=== PATIENT | male | born 1950 | race Caucasian/White ===

== ENCOUNTER 2020-11-17 12:29 | Outpatient (RCR) | payer MEDICARE, SELFPAY ==
[2017-02-09 14:20] VITALS: BMI 24.7
== END 2020-11-17 23:59 ==
LOC: IMMUN 12:29
PROVIDERS: PCP Nurse Practitioner Family; Visit Provider Family Medicine
DX: Z23 Encounter for immunization (principal)
CPT/HCPCS: 0011A; 0012A

== ENCOUNTER → 2020-11-26 14:12 | Outpatient (CLI) | payer MEDICARE, SELFPAY ==
[2017-02-09 14:20] VITALS: BMI 24.7
--- NOTE | 2020-11-26 14:15 | RAD_ITS ---
STUDY: X-RAY - CERVICAL SPINE REASON FOR EXAM: Male, 70 years old. NECK PAIN TECHNIQUE: 4 view(s) of the cervical spine were obtained. COMPARISON: None FINDINGS: Normal anterior atlantoaxial articulation. Normal odontoid process. Normal cervical lordosis. Mild disc space narrowing throughout the cervical spine. Normal disc space heights. Normal visualized intervertebral neuroforamina. The soft tissue structures are unremarkable. RAD/Cerv Spine 2 or 3 Views IMPRESSION: Mild degenerative changes, no acute findings Electronically Signed: Horace Vincent MD at 14:48 EST , Service support ,
== END ==
PROVIDERS: PCP Nurse Practitioner Family; Referring Provider Anesthesiology Pain Medicine; Visit Provider Anesthesiology Pain Medicine
DX: M54.2 Cervicalgia (principal)
CPT/HCPCS: 72040

== ENCOUNTER → 2021-03-26 12:01 | Outpatient (CLI) | payer MEDICARE, SELFPAY ==
[2021-03-26 13:01] LABS: Erythrocyte Sedimentation Rate 10 mm/hr (0-20)
[2021-03-26 13:03] LABS: Hematocrit 41.3 % (40-54); Hemoglobin 14.1 g/dL (13.0-16.5); Mean Corp Hgb Conc 34.1 g/dL (32-36); Mean Corpuscular Hgb 31.5 pg (27.0-32.0); Mean Corpuscular Volume 92.4 fL (80-94); Platelet Count 195 K/mm3 (150-450); RBC Distribution Width CV 12.2 % (11.6-14.6); RBC Distribution Width SD 41.6 fl (35.1-43.9); RET-HE 37.2 pg (30-35); Red Blood Count 4.47 M/mm3 (4.6-6.2); Reticulocyte Count 1.17 % (0.5-1.5); White Blood Count 5.6 K/mm3 (4.4-11.0)
[2021-03-26 13:32] LABS: ALB/GLOB Ratio 1.2 RATIO (0.9-2.4); AST(SGOT) 42 U/L (15-37); Alanine Aminotransfer ALT/SGPT 68 U/L (16-61); Albumin, Serum 4.1 g/dL (3.2-5.0); Alkaline Phosphatase 54 U/L (45-117); Anion Gap 7 (5-15); BUN 20 mg/dL (7-18); BUN/Creat Ratio 18.9 RATIO (10-20); CRP < 2.90 mg/L (0.0-3.0); Calcium,Total 9.3 mg/dL (8.5-10.1); Chloride 102 mmol/L (98-107); Creatinine, Serum 1.06 mg/dL (0.70-1.30); EST Glomerular Filtration Rate 73 mL/min (>60); Est Glom Filt Rate - Afr Amer 88 mL/min (>60); Globulin 3.4 g/dL (2.2-4.2); Glucose 106 mg/dL (74-106); Iron Binding Capacity,Total 351 ug/dL (250-450); Magnesium 2.2 mg/dL (1.6-2.6); Potassium 4.2 mmol/L (3.5-5.1); Protein, Total 7.5 g/dL (6.4-8.2); Sodium Level 136 mmol/L (136-145)
[2021-03-26 13:44] LABS: Vitamin B12 602 pg/mL (211-911); Vitamin D,25 Hydroxy 34.6 ng/mL
[2021-03-27 18:38] LABS: ANTINUCLEAR ANTIBODIES DIRECT Negative (Negative)
== END ==
PROVIDERS: PCP Nurse Practitioner Family; Visit Provider Nurse Practitioner Family
DX: D35.2 Benign neoplasm of pituitary gland (principal); R53.82 Chronic fatigue, unspecified; H93.239 Hyperacusis, unspecified ear; F41.9 Anxiety disorder, unspecified; R42 Dizziness and giddiness; E55.9 Vitamin D deficiency, unspecified
CPT/HCPCS: 36415; 80053; 82306; 82607; 83550; 83735; 85027; 85045; 85652; 86038; 86140

== ENCOUNTER 2021-04-27 09:05 | Emergency (ER) | payer MEDICARE, SELFPAY ==
[2021-04-27 09:05] VITALS: BP 144/81; PULSE 59; RESP 16; TEMP 36.1; O2SAT 97; BMI 27.1
[2021-04-27 09:45] LABS: Absolute Lymphocyte Count 1.85 X10^3/uL (0.83-4.51); Absolute Neutrophil Count 4.3 X10^3/uL (2.0-7.7); Basophil# 0.05 X10^3/uL; Basophil% 0.7 % (0-1); Eosinophil# 0.05 X10^3/uL; Eosinophils% 0.7 % (0-5); Hematocrit 42.8 % (40-54); Hemoglobin 14.5 g/dL (13.0-16.5); Lymphocyte # 1.85 X10^3/ul (0.83-4.51); Lymphocyte % 27.3 % (19-41); Mean Corp Hgb Conc 33.9 g/dL (32-36); Mean Corpuscular Hgb 31.5 pg (27.0-32.0); Mean Platelet Vol. 9.6 fl (6.2-12.0); Monocyte# 0.53 X10^3/uL; Monocyte% 7.8 % (0-10); NRBC Flagged by Analyzer 0 % (0-5); Neutrophil # 4.27 X10^3/uL (2.7-7.7); Neutrophil % 63.1 % (47-70); Platelet Count 202 K/mm3 (150-450); RBC Distribution Width CV 12.1 % (11.6-14.6); RBC Distribution Width SD 41.2 fl (35.1-43.9); White Blood Count 6.8 K/mm3 (4.4-11.0)
--- NOTE | 2021-04-27 09:54 | EX.ED.DYSGE1 ---
HPI <Dr. Long Garces DO - Last Filed: 04/28/21 16:04> History of Present Illness Chief Complaint: Substance Abuse Informant: patient Narrative Narrative: Patient is a 71-year-old male who presents to the emergency department for wanting to come off of his escitalopram and clonazepam. He states that he was just started on the Escitalopram mid last week and stopped it suddenly on Tuesday as he feels like it was negatively affecting him. He states that he was having some night terrors and thrashing around at night. He did ask his spouse to shoot him because he did not want to live like this. He states he does not want to . He does have a history of depression. Is been on multiple medications in the past. He feels like he has not been sleeping at all because he is scared to sleep. He did have some hallucinations last week. He states that he could see his everywhere. Patient otherwise denies headache, vision changes. 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 He denies any neck pain or back pain. No chest pain or shortness of breath. No abdominal pain or nausea/vomiting. No urinary symptoms or change in moving bowels. [facility] <Dr. Long Garces DO - Last Filed: 04/28/21 16:04> [facility] Medical History (Updated 04/27/21 @ 15:[address] Long Garces DO) Addiction Saji disease Agitation Depressed H/O: pituitary tumor Hyperacusis Hypertension Hypothyroid Kidney stones Pituitary abnormality Home Medications clonazepam 0.5 mg PO DAILY 04/27/21 [History Last Taken Unknown] hydrocortisone 1.5 mg PO DAILY 04/27/21 [History Last Taken Unknown] levothyroxine 50 mcg PO DAILY 04/27/21 [History Last Taken Unknown] mirtazapine 7.5 mg PO QHS 04/27/21 [History Last Taken Unknown] valsartan [Diovan] 20 mg PO DAILY 04/27/21 [History Last Taken Unknown] Allergy/AdvReac Type Severity Reaction Status Date / Time diphenhydramine Allergy Other Verified [facility]/27/21 09:07 [facility] Social History Smoking Status: Never smoker ROS <Dr. Long Garces, DO - Last Filed: 04/28/21 16:04> ROS ED Constitutional Constitutional ED: Denies chills or fever(s) Eyes Eyes: Denies change in vision ENT ENT ED: Denies epistaxis or rhinorrhea Cardiovascular Cardiovascular: Denies chest pain Respiratory/Chest Respiratory/Chest: Denies cough or dyspnea Gastrointestinal Gastrointestinal: Denies abdominal pain, diarrhea, nausea or vomiting Genitourinary Genitourinary ED: Denies dysuria, hematuria or urinary frequency Musculoskeletal Musculoskeletal: Denies back pain or neck pain Integumentary Denies rash Neurologic Neurologic: Denies dizziness, headache(s) or weakness Psychiatric Psychiatric: Reports anxiety, depression and other Details: Hallucinations EXAM <Dr. Long Garces, DO - Last Filed: 04/28/21 16:04> Physical Exam Const Vital Signs: 04/27/21 18:57 04/27/21 22:00 04/28/21 00:22 Temperature 97.6 F L Pulse Rate 71 55 L 60 Respiratory Rate 16 16 16 Blood Pressure 139/89 H 150/90 H 145/85 H Blood Pressure Mean 105 110 105 Pulse Ox 99 96 Oxygen Delivery Method Room Air Positive well nourished and well developed General Appearance ED: well developed and NAD HEENT Reports normocephalic, head/scalp atraumatic and moist mucous membranes Eyes PERRL and EOMs intact bilaterally Neck supple Resp normal respiratory effort and clear to auscultation bilaterally Auscultation: Negative for rales, rhonchi or wheezes Cardio regular rate, regular rhythm and no murmurs GI normal to inspection, nondistended, normoactive bowel sounds and non-tender Palpation: soft; Negative for guarding or rebound tenderness present Back/Spine no CVA tenderness Extremity normal to inspection General Extremety ED: Negative for edema or tenderness General Extremity: Negative for edema Neuro oriented x3, CN's II-XII intact bilaterally and no sensory deficits noted Sensorium / Orientation: alert Motor Exam: strength 5/5 throughout Psych Attitude: No agitated Mood & Affect: anxious Skin no rashes or lesions noted <Dr. Malka Arriaza, DO - Last Filed: 04/27/21 23:41> Physical Exam Const Vital Signs: 04/27/21 18:57 04/27/21 22:00 04/28/21 00:22 Temperature 97.6 F L Pulse Rate 71 55 L 60 Respiratory Rate 16 16 16 Blood Pressure 139/89 H 150/90 H 145/85 H Blood Pressure Mean 105 110 105 Pulse Ox 99 96 Oxygen Delivery Method Room Air MDM <Dr. Long Garces, DO - Last Filed: 04/28/21 16:04> [facility] MDM Narrative Medical decision making narrative: Patient presents the ED for requesting to detox from escitalopram although he was only on it for 3 to 4 days. He feels like this made him much worse. He has been hallucinating, wanting his spouse to shoot him and having night terrors. 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 Will consult social work/crisis for plan. I did speak with the patient's psychiatrist, Dr. Thompson. He states that he does not feel a SSRI which the patient was placed on because of symptoms. He did warn the patient prior to prescribing him this medication that is reviewed likely become very anxious that he started new medication which she has. He does not feel patient is appropriate for outpatient therapy and thinks he does not require inpatient facility as he has borderline psychosis with how bad his anxiety is. I did discuss this with crisis to evaluate the patient at bedside and they are in agreements and are working on placing the patient. Patient is agreeable with this plan and will be transferred to acute psychiatric facility once accepted. The rest of his lab work did not reveal any significant acute abnormality. His liver enzymes are minimally elevated which are similar to previous lab draw. He is positive for cannabinoids. This is all discussed with the patient and he is agreeable with this plan. He otherwise has remained stable throughout ED stay. Lab Data Labs: Laboratory Results - last 24 hr 04/27/21 04/27/21 04/27/21 09:35 09:35 09:35 WBC 6.8 RBC 4.60 Hgb 14.5 Hct 42.8 MCV 93.0 MCH 31.5 MCHC 33.9 RDW Std Deviation 41.2 RDW Coeff of Chris 12.1 Plt Count 202 MPV 9.6 Immature Gran % (Auto) 0.400 Neut % (Auto) 63.1 Lymph % (Auto) 27.3 [place] % (Auto) 7.8 Eos % (Auto) 0.7 Baso % (Auto) 0.7 Absolute Neuts (auto) 4.3 Absolute Lymphs (auto) 1.85 Nucleated RBC % 0 Sodium 134 L Potassium 3.9 Chloride 102 Carbon Dioxide 28.0 Anion Gap 4 L BUN 17 Creatinine 0.93 Estim Creat Clear Calc 84.55 Est GFR (MDRD) Af Amer 103 Est GFR (MDRD) Non-Af 85 BUN/Creatinine Ratio 18.3 Glucose 110 H Calcium 9.7 Total Bilirubin 0.70 AST 39 H ALT 69 H Alkaline Phosphatase 58 Total Protein 7.7 Albumin 4.2 Globulin 3.5 Albumin/Globulin Ratio 1.2 Urine Opiates Screen Urine Methadone Screen Ur Barbiturates Screen Ur Phencyclidine Scrn Ur Amphetamines Screen U Methamphetamin-MDMA U Benzodiazepines Scrn Urine Cocaine Screen U Cannabinoids Screen Ur Drug Screen Comment Ethyl Alcohol 6.0 04/27/21 09:40 WBC RBC Hgb Hct MCV MCH MCHC RDW Std Deviation RDW Coeff of Chris Plt Count MPV Immature Gran % (Auto) Neut % (Auto) Lymph % (Auto) [place] % (Auto) Eos % (Auto) Baso % (Auto) Absolute Neuts (auto) Absolute Lymphs (auto) Nucleated RBC % Sodium Potassium Chloride Carbon Dioxide Anion Gap BUN Creatinine Estim Creat Clear Calc Est GFR (MDRD) Af Amer Est GFR (MDRD) Non-Af BUN/Creatinine Ratio Glucose Calcium Total Bilirubin AST ALT Alkaline Phosphatase Total Protein Albumin Globulin Albumin/Globulin Ratio Urine Opiates Screen NEGATIVE Urine Methadone Screen NEGATIVE Ur Barbiturates Screen NEGATIVE Ur Phencyclidine Scrn NEGATIVE Ur Amphetamines Screen NEGATIVE U Methamphetamin-MDMA NEGATIVE U Benzodiazepines Scrn NEGATIVE Urine Cocaine Screen NEGATIVE U Cannabinoids Screen POSITIVE H Ur Drug Screen Comment Ethyl Alcohol <Dr. Malka Arriaza, DO - Last Filed: 04/27/21 23:41> [facility] MDM Narrative Medical decision making narrative: Patient signed out to me pending acceptance. Patient is excepted to [facility] for inpatient psych. Patient is given Tylenol in the ER for headache as well as his evening dose of mirtazapine and 1 dose of oral Ativan. Lab Data Labs: Laboratory Results - last 24 hr 04/27/21 04/27/21 04/27/21 09:35 09:35 09:35 WBC 6.8 RBC 4.60 Hgb 14.5 Hct 42.8 MCV 93.0 MCH 31.5 MCHC 33.9 RDW Std Deviation 41.2 RDW Coeff of Chris 12.1 Plt Count 202 MPV 9.6 Immature Gran % (Auto) 0.400 Neut % (Auto) 63.1 Lymph % (Auto) 27.3 [place] % (Auto) 7.8 Eos % (Auto) 0.7 Baso % (Auto) 0.7 Absolute Neuts (auto) 4.3 Absolute Lymphs (auto) 1.85 Nucleated RBC % 0 Sodium 134 L Potassium 3.9 Chloride 102 Carbon Dioxide 28.0 Anion Gap 4 L BUN 17 Creatinine 0.93 Estim Creat Clear Calc 84.55 Est GFR (MDRD) Af Amer 103 Est GFR (MDRD) Non-Af 85 BUN/Creatinine Ratio 18.3 Glucose 110 H Calcium 9.7 Total Bilirubin 0.70 AST 39 H ALT 69 H Alkaline Phosphatase 58 Total Protein 7.7 Albumin 4.2 Globulin 3.5 Albumin/Globulin Ratio 1.2 Urine Opiates Screen Urine Methadone Screen Ur Barbiturates Screen Ur Phencyclidine Scrn Ur Amphetamines Screen U Methamphetamin-MDMA U Benzodiazepines Scrn Urine Cocaine Screen U Cannabinoids Screen Ur Drug Screen Comment Ethyl Alcohol 6.0 04/27/21 09:40 WBC RBC Hgb Hct MCV MCH MCHC RDW Std Deviation RDW Coeff of Chris Plt Count MPV Immature Gran % (Auto) Neut % (Auto) Lymph % (Auto) [place] % (Auto) Eos % (Auto) Baso % (Auto) Absolute Neuts (auto) Absolute Lymphs (auto) Nucleated RBC % Sodium Potassium Chloride Carbon Dioxide Anion Gap BUN Creatinine Estim Creat Clear Calc Est GFR (MDRD) Af Amer Est GFR (MDRD) Non-Af BUN/Creatinine Ratio Glucose Calcium Total Bilirubin AST ALT Alkaline Phosphatase Total Protein Albumin Globulin Albumin/Globulin Ratio Urine Opiates Screen NEGATIVE Urine Methadone Screen NEGATIVE Ur Barbiturates Screen NEGATIVE Ur Phencyclidine Scrn NEGATIVE Ur Amphetamines Screen NEGATIVE U Methamphetamin-MDMA NEGATIVE U Benzodiazepines Scrn NEGATIVE Urine Cocaine Screen NEGATIVE U Cannabinoids Screen POSITIVE H Ur Drug Screen Comment Ethyl Alcohol Discharge Plan Triage Chief Complaint: Substance Abuse ED Provider: Long Garces Dx/Rx/DC Orders Clinical Impression: Anxiety, Hallucinations Prescriptions: No Action hydrocortisone 5 mg Tablet 1.5 mg PO DAILY RF: 0 clonazepam 0.5 mg Tablet 0.5 mg PO DAILY RF: 0 mirtazapine 7.5 mg Tablet 7.5 mg PO QHS RF: 0 levothyroxine 50 mcg Capsule 50 mcg PO DAILY RF: 0 valsartan [Diovan] 40 mg tablet 20 mg PO DAILY RF: 0 Primary Care Provider: Eyal Grove NP Referrals: Eyal Grove NP, [facility] [Primary Care Provider] - Disposition Disposition: Psychiatric Hospital or Unit Discharge Location: [facility] Discharge Date/Time: 04/27/21 23:45
[2021-04-27 10:00] LABS: Amphetamine Urine VISTA NEGATIVE (<1000 ng/mL); Barbiturate Urine VISTA NEGATIVE (< 200 ng/mL); Benzodiazepine Urine VISTA NEGATIVE (< 200 ng/mL); Cocaine Urine VISTA NEGATIVE (< 300 ng/mL); Ecstacy Urine VISTA NEGATIVE (< 500 ng/mL); Methadone Urine VISTA NEGATIVE (< 300 ng/mL); PCP Urine VISTA NEGATIVE (< 25 ng/mL); THC Urine VISTA POSITIVE (< 50 ng/mL); Vista UDS pH Range 5
[2021-04-27 10:02] LABS: BUN 17 mg/dL (7-18); Creatinine, Serum 0.93 mg/dL (0.70-1.30); EST Glomerular Filtration Rate 85 mL/min (>60); Estimated Creatinine Clearance 84.55 ml/min; Glucose 110 mg/dL (74-106)
[2021-04-27 10:03] LABS: ALB/GLOB Ratio 1.2 RATIO (0.9-2.4); AST(SGOT) 39 U/L (15-37); Alanine Aminotransfer ALT/SGPT 69 U/L (16-61); Albumin, Serum 4.2 g/dL (3.2-5.0); Alkaline Phosphatase 58 U/L (45-117); Anion Gap 4 (5-15); BUN/Creat Ratio 18.3 RATIO (10-20); Calcium,Total 9.7 mg/dL (8.5-10.1); Chloride 102 mmol/L (98-107); Est Glom Filt Rate - Afr Amer 103 mL/min (>60); Globulin 3.5 g/dL (2.2-4.2); Potassium 3.9 mmol/L (3.5-5.1); Protein, Total 7.7 g/dL (6.4-8.2); Sodium Level 134 mmol/L (136-145)
--- NOTE | 2021-04-27 14:29 | ED.RN ---
DARIUS WITH CRISIS IS GOING TO WORK ON PLACEMENT FOR THIS PT
[2021-04-27 14:40] VITALS: BP 126/77; PULSE 61; RESP 16; O2SAT 98
--- NOTE | 2021-04-27 15:52 | ED.RN ---
PER DARIUS WITH CRISIS SHE MADE A REFERAL TO [facility] WHO DECLINED DUE TO NO BEDS, SHE THEN MADE A REFERAL TO [facility] AND IS WAITING ON A RESPONSE
[2021-04-27 18:57] VITALS: BP 139/89; PULSE 71; RESP 16
--- NOTE | 2021-04-27 21:21 | NURSING ---
FAXED UA AND COVID TO [facility]
[2021-04-27 22:00] VITALS: BP 150/90; PULSE 55; RESP 16; O2SAT 99
[2021-04-27] MEDS: LORazepam 0.5 MG Tablet PO (22:00)
[2021-04-27] MEDS: Mirtazapine 15 MG Tablet 7.5 MG PO (22:00)
[2021-04-27] MEDS: Acetaminophen 325 MG Tablet 650 MG PO (23:44)
[2021-04-28 00:22] VITALS: BP 145/85; PULSE 60; RESP 16; TEMP 36.4; O2SAT 96
--- NOTE | 2021-04-28 00:25 | ED.RN ---
Attempt to notify Yi of transfer. No answer on her cell phone.
== END 2021-04-27 23:45 ==
PROVIDERS: Emergency Provider Emergency Medicine; PCP Nurse Practitioner Family
DX: F41.9 Anxiety disorder, unspecified (principal); R44.3 Hallucinations, unspecified; F32.9 Major depressive disorder, single episode, unspecified; R45.1 Restlessness and agitation; F51.4 Sleep terrors [night terrors]; H93.239 Hyperacusis, unspecified ear; E27.1 Primary adrenocortical insufficiency; I10 Essential (primary) hypertension; E03.9 Hypothyroidism, unspecified; R51.9 Headache, unspecified; Z79.890 Hormone replacement therapy; Z79.899 Other long term (current) drug therapy
CPT/HCPCS: 36415; 80053; 80307; 82077; 85025; 87426; 99285

== ENCOUNTER 2021-06-02 08:30 | Outpatient (RCR) | payer MEDICARE, SELFPAY ==
--- NOTE | 2021-06-02 10:08 | BH.SGPN.GN ---
Behaviors/Verbalizations/Mental Status: []Client alert and oriented, disheveled appearance. Eye contact good. Motor activity restless-pacing at times. Speech within normal limits. Affect flat, mood dysthymic and anxious. Thoughts linear, logical, no signs of hallucinations or delusions. Client Response/Progress/Benefit: []Pt was an active participant in group discussion AEB taking notes and providing input throughout. Attentive during psychoeducation reviewing internal and external obstacles and provided examples throughout. Participated in the reflection activity in which clients devaughn pictures depicting their current and desired reality and shared with the group. Pt described his current reality as ?my anxiety making things bigger than they really are.? Pt described his desired reality as ?less catastrophizing? and being with his supports. Pt reflected on strengths he has that will help pt get to desired reality such as: using skills learned in therapy and insight. Benefited from group by increasing awareness of current reality and strengths. Will continue IOP tx to prevent decompensation, monitor medication changes, and learn healthy coping skills to manage anxiety. Narrative Note: []
--- NOTE | 2021-06-02 11:06 | BH.SGPN.GN ---
Behaviors/Verbalizations/Mental Status: []Client alert and oriented, disheveled appearance. Eye contact good. Motor activity restless-pacing at times. Speech within normal limits. Affect flat, mood anxious. Thoughts linear, logical, no signs of hallucinations or delusions. Client Response/Progress/Benefit: []Client engaged during activity and provided ideas on how to cope with internal barriers that keep clients stuck from moving towards goals. Client able to identify barriers to desired reality. Identified barriers to current reality to include: catastrophizing thinking, struggling to develop a plan, and avoidance. Client wants to work on overcoming his avoidance and isolation by looking into hobbies he could try in [place]. Benefited from group by identifying obstacles and solutions to desired reality. Client will continue IOP tx to prevent decompensation, monitor medication changes, and learn skills to manage anxiety. Narrative Note: []
--- NOTE | 2021-06-02 15:29 | BH.COMM ---
Communication Note - Communication with Client Communication Note: Met with pt to complete initial paperwork. No significant changes since pre-admission screening. Denies any suicidal ideation, denies any current plan or intent. Denies any homicidal ideation. Completed [place] Suicide Screening with low risk. Future-oriented.
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
[2021-06-03 12:17] VITALS: BP 132/74; PULSE 64
--- NOTE | 2021-06-03 13:20 | BH.PSY.EVA_ITS ---
Psychiatric Evaluation Initial Evaluation Initial Evaluation: History of Present Illness: [] History was obtained by interview of the patient, reviewing notes from the emergency room, Dr. Thompson, and patient's notes. The patient is a 71-year-old male with a history of anxiety, depression and somatic preoccupation who was referred to the [facility] behavioral health IOP program by his current psychiatrist. The patient's current difficulties began in September 2020 when he began having hyperacusis where his brain hears things louder than normal. He had this worked up with an ENT doctor and was diagnosed with hyperacusis and occasional benign vertigo. The patient has had severe anxiety and worry over side effects on medications including Lexapro and Celexa. In addition the patient developed insomnia in April 2021 which was only relieved when he took Klonopin. The patient was went to the [place] emergency room on April 27, 2021 in order to detox off of Lexapro and Klonopin. At that time he was described as mildly psychotic with hallucinations and delusions. He was sent to [facility] and was admitted there for 4 days. He was treated with Seroquel, doxepin and Remeron and Vistaril. Patient says that he developed restless leg syndrome in his legs and his arms and was treated for this with benztropine. The doxepin was discontinued but he was continued on the other medications. The patient states that he feels he is better now than he was several weeks ago. He still has the tendency to have his fear and anxiety stimulated by numerous normal daily events especially when he is bored or lonely. He is currently seeing a counselor once a week and has found this quite helpful. He states that his counselor has taught him to work on his catastrophizing. And he has signs posted in the house to help him not catastrophize. In addition the patient has started pacing in order to relieve his anxiety and feelings of tension. He began this while inpatient and is continued at home and feels it is helped him greatly. He states that he has not needed his earplugs for hyperacusis since May 01, 2021 and he is uncertain why this has almost resolved completely. The patient also states that once in a while he gets a little dizzy when he stands up and he has been taking his blood pressure at home every day 4 times a day and has noticed that if his blood pressure is low that is when the dizziness happens. The patient has been skipping doses of his high blood pressure medication (valsartan) but has not told his primary care doctor this. Patient has been retired since October 2016 and used to work in the [employer]. The patient has a history of racing thoughts but he feels that the Seroquel that he is taking since his admission to the psych unit has improved his anxiety and he is having less racing thoughts and fear of . His mood is better and he says he is a little down but not depressed like he was before. He denies hopelessness, worthlessness or guilt. He enjoys painting and yard work on his 5 acres [place] land. His appetite is okay and his sleep is good at 8 to 9 hours a night for the past 10 days. His energy level is good and his concentration is good until after 6 PM in the evening. He had 1 panic attack a week ago but is not having them much now. He denies any passive thoughts of , suicidal ideation, plan for suicide, homicidal ideation, hallucinations, delusions or destinee symptoms. He drinks 1 to 2 cups of coffee in the morning only. He has no access to his guns since he went to the emergency room. He denies any history of self-harm, seizure, head trauma. He denies OCD, eating disorder, trauma, PTSD. He did use CBD a few times in the past month and he states that it did not help but he feels that this is what made his THC test positive in the emergency room. He denies any marijuana or other drug use. Current Psychiatric Medications: [] Seroquel 100 mg p.o. nightly (since his admission April 27 to May 01, 2021); Vistaril 25 mg up to 3 times daily (t akes mostly only 1 at bedtime); Remeron 7.5 mg p.o. nightly (on this since 2017); benztropine 1 mg up to twice daily (this has resolved his restless leg syndrome and hand tremors). Past Psychiatric History: [] Patient has a history of 1 psychiatric admission April 28 May 02 as noted above. He has no suicide attempts ever. He has seen Dr. Hartley since [address] Donna saved my life. The patient first took psych meds in 2011 after the of his first . He took Lexapro about 4 years and then stopped it due to sexual side effects. After discontinuing it his symptoms worsened eventually. He was always a worrier his whole life to some extent. He has a history of getting numerous side effects on medications. He had catastrophic side effects when he took Lexapro again and Celexa. He had severe night terrors on Celexa and only took it 2 nights. He had catastrophic thoughts on Lexapro when he went on it again in 2020. Patient did the [place] IOP program in 2017 and found it somewhat helpful. He has a counselor he is seeing once a week now and this is quite helpful. In 2020. He also has tried Prozac, Klonopin and doxepin. Substance Use History: [] Patient is a non-smoker. He has not used marijuana since college. He used CBD recently but none since 4 weeks ago and feels this caused his positive THC test in the hospital. He denies alcohol use or any other drug use. No rehab ever. Allergies: [] Benadryl Medications: [] Psych meds as dictated above plus levothyroxine, the losartan, hydrocortisone pills which she takes 1-1/2 of unknown dose and has been on this every morning since 2018 when he had his pituitary tumor resected. 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 History of kidney stones, hypothyroidism, hypertension, hyperacusis, gallstones. Family Psychiatric History: [] Mother has history of depression. Family history otherwise negative. Personal/Social History: [] The patient was born and raised in [place]. He has a younger brother who was hard of hearing and the patient help take care of him. They do not get along well now. He attended [employer] and was present during the shootings. He then transferred to [place] where he obtained a BA in history. 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 He was to his first for 42 years and she of breast cancer in August 2011. He another woman in August 2016 and he and his new are doing well and she is very supportive. They have been for years and this is his second marriage. Legal History: [] None Review of Systems: [] Negative except as noted in present illness. Although the patient has been very somatically focused in the past he is currently much improved. Vital Signs: [] Reviewed in nurses notes. Mental Status Examination: [] Patient is a 71-year-old male who appears normal for stated age and is seen wearing a mask due to the pandemic. His gait is normal and he is alert and oriented to person place and time. Eye contact is good and speech is normal rate and rhythm and fluent with no pressure. He has no psychomotor agitation or retardation but on occasion has mild fidgeting of his hands. Mood is mildly depressed and anxious. Affect is full and normal. Thought process is goal-directed and organized. Thought content: There is no evidence of passive thoughts of , suicidal ideation, homicidal ideation, hallucinations or delusions. There is a mild tendency to be somatically focused but mostly on past symptoms not current. Reality testing is intact. Intelligence is above average. Immediate recent and remote memory grossly intact. Concentration is good. Judgment is limited. Insight is good. Impulsivity is low. Diagnoses: [] 1. Anxiety disorder, NOS (F 41.9) 2. Generalized anxiety disorder 3. 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 History of psychosis, NOS possibly related to antidepressant use but uncertain. 5. Somatic preoccupation history 6. History of hyperacusis and benign vertigo Plan: [] The patient will start the IOP program at [facility] as the structure, support, education, and group therapy will hopefully prevent worsening of the patient's symptoms that might require hospitalization. He felt safe during the interview and if it anytime he does not feel safe he will let us know or go to the emergency room. The risk, options, possible complications and side effects were discussed with the patient and he understands and accepts these and in fact has looked most of them up himself. No medication changes were made today as the patient is much improved in the last week or so. Discussion was had that we will leave the medications where they are as a seem to be really helping him and he needs to wait a few months and keep attending his counseling sessions. He is encouraged to make sure he drinks enough liquid especially on hot days. He is strongly encouraged to call his primary care doctor and tell him that he is not taking his valsartan as prescribed and that when he checks his blood pressure it is low often and if he takes the medicine he gets dizzy. He has not informed his primary care doctor of this yet but he agrees that he will. He is to continue avoidance of triggers to his anxiety and to use the skills he is learning to decrease his catastrophizing. He will continue to use walking and pacing to help him relax and de-escalate his extreme anxiety when it elevates. He will continue to follow-up with his outpatient psychiatric and medical providers.
--- NOTE | 2021-06-03 13:45 | BH.DR.ITP ---
Initial Treatment Plan Patient Information Visit Information: ADMISSION DATE: EXPECTED LOS: 4-6 weeks Problems/Symptoms Problem #1:: Anxiety Symptom:: Worry, rumination, racing thoughts, fear of , somatic preoccupation when anxious Problem #2:: Depression Symptom:: History of sadness, suicidal ideation, passive thoughts of , insomnia, hopelessness
--- NOTE | 2021-06-03 15:07 | BH.MDN ---
Multi-Disciplinary Note - Note 30-min Individual Time Started:: 11:35 Date: 06/03/21 Purpose of session/treatment goals addressed:: To identify treatment goals and build rapport with client. Another goal was to explore symptoms and provide psychoeducation on intrusive thinking. Eye Contact:: Good Motor Activity:: Restless Appearance:: Casual Speech:: Tangential Mood:: Anxious Affect:: Constricted Thoughts:: Circular, No evidence of hallucinations/delusions noted Staff Interventions:: psychoeducation on: - intrusive thinking, rapport building, treatment planning, goal setting Client Response:: Client responded well to session, open to meeting with therapist. Client reported meeting with the psychiatrist today went well and it made client feel hopeful. Client shared that his biggest goals for IOP are to reduce catastrophizing and understand this dizziness issue. Client has been going to weekly counseling and reports this has been helpful. Client shared his outpatient counselor has him working on catching and challenging catastrophizing thinking. Client connected with intrusive thinking, safety behaviors, and health anxiety. Client reported he has been trying not to google symptoms as this only makes anxiety worse. Client shared his is a positive support. Risks/Concerns:: Client denies any suicidal ideations, plan, or intent as of 06/03/21. Denies any homicidal ideations. Progress Toward Goals/Plan:: Client's second day of IOP tx. Per IOP psychiatrist's report, client's mood has improved and he is not depressed like he was before. Client still feels anxious most days and reports he often catastrophizes. Client reports since being discharged from the hospital, he has been pacing to cope with his anxiety and tension. Client admits to health anxiety and reports he is currently most worried about the dizziness he is experiencing. Client also has anxiety about his loss of appetite and weight loss. Client plans to attend IOP twice a week. Can continue to benefit from IOP tx to learn healthy coping skills and reduce negative thinking patterns. Time Stopped:: 12:05
--- NOTE | 2021-06-03 15:29 | BH.MTP_ITS ---
Master Treatment Plan - Patient Information Program Physician:: Dr. 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 Description of Barriers: Mild awareness of his intrusive, health-related thoughts. History of non-responsiveness to medications. Anger about worsening mental health symptoms and fear of mental health worsening his relationship. Functional Impact: Client is a 71-year-old male with a history of depression and anxiety. Client was referred to [facility] following a psychiatric admission from 04/28/21-05/02/21. Client was admitted due to severe anxiety, restlessness, intrusive thoughts, and hallucinations. Client is hyperfocused on somatic complaints which he associates with recent medication changes. Client has been experiencing intrusive thoughts about his health, dying, and being life this for my whole life. Client reports he has been pacing since getting discharged from the hospital and reports excessive energy. Client's symptoms are currently impacting his social and marital functioning. Goal Relevant Strengths/Supports: Client is connected with psychiatry and counseling. Client is intelligent and has good support. - Objectives Objective #1 Stated Objective: Client will identify 2-3 anxiety triggers and 2 coping skills to use when feeling anxious to manage anxiety as shown by reducing DSM-5 scores for anxiety. Interventions: Through group and individual sessions, client will gain awareness of his anxiety triggers and learn numerous techniques to manage anxiety symptoms. Therapist will mindfulness and other calming techniques to manage symptoms and increase distress tolerance skills. Discharge Criteria: Client will have met this goal if client can prevent deco mpensation as evidenced by stability in DSM-5 scores and when he can identify at least 2 triggers and 2 ways to cope with anxiety. Target Date: 07/14/21 Review Date: 06/30/21 Status: open Objective #2 Stated Objective: Client will identify 2-3 intrusive/ruminating thoughts and learn 2-3 strategies to overcome, replace, or reduce the value of those thoughts. Interventions: Therapist will help client increase awareness of cognitive distortions, false comfort, and myths about intrusive thoughts. Therapist will encourage client to focus on stressors in her control and teach client distress tolerance techniques. Therapist will utilize distractions, mindfulness, and CBT- based strategies to help client learn how to more effectively manage and cope with her intrusive, health-related thoughts. Therapist will use a workbook to give client homework and exercises to practice. Discharge Criteria: Client will have met this goal when can report least 2 ways to cope with intrusive thoughts that exacerbate anxiety. Target Date: 07/14/21 Review Date: 06/30/21 Status: open Problem/Goal #2 - Problem/Goal #2 Stated Goal:: Client will reduce depressive symptoms, lack of motivation, and sadness due to major depressive disorder. Description of Barriers: Mild awareness of his intrusive, health-related thoughts. History of non-responsiveness to medications. Anger about worsening mental health symptoms and fear of mental health worsening his relationship. Functional Impact: Client is a 71-year-old male with a history of depression and anxiety. Client was referred to [facility] following a psychiatric admission from 04/28/21-05/02/21. Client was admitted due to severe anxiety, restlessness, intrusive thoughts, and hallucinations. Client is hyperfocused on somatic complaints which he associates with recent medication changes. Client has been experiencing intrusive thoughts about his health, dying, and being life this for my whole life. Client reports he has been pacing since getting discharged from the hospital and reports excessive energy. Client's symptoms are currently impacting his social and marital functioning. Goal Relevant Strengths/Supports: Client is connected with psychiatry and counseling. Client is intelligent and has good support. - Objectives Objective #1 Stated Objective: Client will learn and utilize 2-3 healthy coping strategies to better manage depressive symptoms and reduce DSM-5 symptoms for depression. Interventions: Through group and individual sessions, therapist will help client identify triggers and warning signs of depression and emotional dysregulation including emotional, physical, and behavioral changes. Therapist will teach client various coping skills to manage her symptoms. Therapist will use cognitiv e restructuring techniques and help client gain awareness of negative thoughts that reinforce depressive cycles. Therapist will help client incorporate mindfulness and emotional regulation skills when dealing with difficult situations. Discharge Criteria: Client will have met this goal when he can report learning and using at least 2 coping skills to manage depressive symptoms and his DSM-5 scores for depression have decreased. Target Date: 07/14/21 Review Date: 06/30/21 Status: open
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
--- NOTE | 2021-06-09 09:00 | BH.SGPN.GN ---
Behaviors/Verbalizations/Mental Status: []Eye contact is good. Motor activity is appropriate. Appearance is casual. Speech is Appropriate. Mood is anxious. Affect is congruent. Thoughts are linear and logical. No evidence of psychosis. Reviewed daily check in sheet and no reports of suicidal ideations, plan, or intent. Client Response/Progress/Benefit: []Pt receptive of group, willing to process with group and nodding in relation to others as they shared. Identified emotion for the day as ?worried? and noted feeling frustrated with himself for worrying as often as he does. Went on to described trying to identify his use of catastrophizing or assuming distortions since learning about them and has found this helpful in improving his overall ability to begin challenging anxious thoughts. Client discussed a current distortion he is struggling with, noting thoughts that he is ?annoying? his as he texted her this morning as she still has not responded. Appeared to benefit from working with group to identify what distortions he is using and evidence to challenge this thought. Recognized he has been able to see some improvements in overall sleep quality which has improved his mood stability and decreased anxiety somewhat. Continues to struggle with externalization, intrusive ruminating healthy anxiety, and minimization of progress. Recommended continued IOP tx to improve ability to identify and challenge thought distortions, reduce health anxiety, and improve ability to function at baseline. Narrative Note: []
--- NOTE | 2021-06-09 10:08 | BH.SGPN.GN ---
Behaviors/Verbalizations/Mental Status: []Client alert and oriented, casually dressed and groomed. Eye contact good. Motor activity appropriate. Speech within normal limits. Affect constricted, mood anxious. Thoughts linear, logical, no signs of hallucinations or delusions. Client Response/Progress/Benefit: []Client engaged during session AEB client occasionally contributing during discussion and completing worksheet. Connected with discussion on crisis and how coping with external crises by using unhealthy coping skills could result in a personal crisis. Group reflected on the importance of having awareness of personal warning signs to prevent reaching crisis point. Group identified potential warning signs for crisis and client completed the personal warning signs worksheet. Client identified personal crisis warning signs to include: racing thoughts, uncontrollable worries, and unusual drop in functioning. Client stated he also does not feel safe during certain things when ?I?m not at my best.? Client benefited by increasing awareness of what leads to crisis and personal warning signs. Client will continue IOP tx to prevent decompensation, learn healthy coping skills, and combat distorted thought patterns. Narrative Note: []
--- NOTE | 2021-06-09 11:15 | BH.SGPN.GN ---
Behaviors/Verbalizations/Mental Status: []Client alert and oriented, casually dressed and groomed. Eye contact fair. Motor activity appropriate. Speech within normal limits. Affect constricted. Mood anxious. Thoughts linear, logical, no signs of hallucinations or delusions. Client Response/Progress/Benefit: []Client responded well to session as evidenced by client listening attentively to others and providing strategies during discussion. Client identified personal warning signs for crisis and gained further awareness of earliest warning signs. Client created a crisis action plan to help client better manage warning signs for crisis. Client?s action plan for uncontrollable worries included: recognize where worries are coming from, breathing exercises and change environment. Client appeared to benefit from creating a crisis action plan and increasing self-awareness. Client to continue IOP tx to increase healthy coping, increase understanding of connection between anxiety and somatic complaints, and prevent decompensation.
--- NOTE | 2021-06-10 09:05 | BH.SGPN.GN ---
Behaviors/Verbalizations/Mental Status: []Client alert and oriented, casually dressed and groomed. Eye contact good. Motor activity appropriate. Speech within normal limits. Affect constricted, mood euthymic. Thoughts linear, logical, no signs of hallucinations or delusions. Reviewed client?s symptom tracker, no risk for suicidal ideation, plan, or intent as of 06/10/21 Client Response/Progress/Benefit: C[]Client responded well to session, connecting with peers and attentive. Client reports I'm feeling better now than he did when he woke up this morning. Client shared he struggled with sleep the past two nights which made client highly anxious and agitated. Client recognizes now that he was having catastrophizing thoughts about his medication and health, but reports at the time he did not realize this. Client spoke with IOP staff this morning and client shared this helped him realize he was having a panic attack and that he is putting too much value on medication and not giving himself enough credit. Appeared to benefit from coming to IOP today rather than isolating and from processing his emotions with peers. Client continues to struggle with intrusive thinking and reassurance seeking that reinforces anxiety. Will continue IOP tx to prevent decompensation, gain healthy coping skills, and reduce intrusive thoughts. Narrative Note: []
--- NOTE | 2021-06-10 12:10 | PCM.BH.PN_ITS ---
Progress Note Progress Note: history of Present Illness/Interim History: [] The patient is a 71-year-old male with a history of severe anxiety and somatic preoccupation and depression who is seen in follow-up at the [facility] behavioral health IOP program. I last saw the patient 1 week ago. The patient states that he feels he is benefiting from the IOP program and he is able to learn some good things and last week was mostly reasonably good. However his counselor went on vacation last week so he could not see her and he has noticed an increase in his anxiety in the past few days. He was sleeping well with the current medication regimen however the last 2 nights he states that he went to bed early both nights because his wanted to go to bed early. He had some initial insomnia and then at one point woke up several hours after getting to sleep and both times he had an extreme fear that he would not have a good night's sleep. This escalated almost into a panic attack. He states I am scared now just thinking about it. He continues to be preoccupied with some side effects from medication. At at one point he states that he is afraid that the Cogentin is giving him headaches but on further questioning is uncertain that it is due to that. His restless leg symptoms have resolved on the benztropine. The patient states that his mood is okay during the day and is generally positive. His energy level is good. He has taken a nap in the afternoon because his takes a nap in the afternoon lately. The patient states that his feels and keeps saying that nothing will work for his anxiety issues. Patient states that his marriage is good and he very much wants to please his because he was lonely before he her and he does not want to be lonely again. Patient's hyperacusis remains resolved and he did not have any complaints about vertigo or dizziness. He denies any passive thoughts of , suicidal ideation, homicidal ideation, hallucinations, delusions or destinee symptoms. Current Psychiatric Medications: [] Seroquel 100 mg p.o. nightly (x5 or 6 weeks now); Vistaril 25 mg mostly takes 1 at bedtime; Remeron 7.5 mg p.o. nightly (on this since 2018; benztropine 1 mg p.o. at at bedtime Mental Status Examination: [] The patient is a 71-year-old male who is seen wearing a mask due to the pandemic and is casually dressed and groomed with good hygiene. He is mildly psychomotor agitated today with mild fidgeting of his hands. He has no evidence of tremor. His gait is normal and he is alert and oriented to person place and time. Eye contact is good and speech is normal rate and rhythm and fluent with no pressure. Mood is anxious. Affect is full and nervous.. Thought process is goal-directed and organized but at times patient has some difficulty explaining his symptoms. Thought content: Patient is preoccupied on fear of not sleeping and somatically preoccupied with side effects from medications or for instance states that when he gets up to leave he states that see my legs are not working as well as they used to. There is no evidence of passive thoughts of , suicidal ideation, homicidal ideation, hallucinations or delusions. Reality testing is intact. Insight is limited but some present. Impulsivity is low. Judgment is limited. Diagnoses: [] 1. 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 Generalized anxiety disorder 3. 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 5. History of hyperacusis and benign vertigo Plan: [] The patient will continue the IOP program at [facility] as the structure, support, education and group therapy will hopefully prevent worsening of the patient's symptoms that might require hospitalization. He felt safe during the interview and if it anytime he does not feel safe he will let us know or go to the emergency room. The risks, options, possible complications and side effects were again discussed with the patient and he understands and accepts these and in fact again has continued to look most of them up on the Internet. He also expressed concern about getting Parkinson's disease from the medications but I discussed with him that some antipsychotics can cause parkinsonism but that is not the same as Parkinson's disease. And Seroquel has a low incidence of this and he is not showing symptoms of it. Discussed with the patient that he should continue to keep regular sleep-wake hours and he should not go to bed early just because his wants to go to bed early he should go to bed at his normal bedtime. In addition he should not take naps during the day. He will continue to lose and use his relaxation skills and exercises. In addition the patient agrees to increase his Seroquel to a total of 125 mg p.o. nightly. Prescription was sent in for a 25 mg Seroquel, #30, 1 refill, 1 p.o. nightly taken with one 100 mg of Seroquel for a total of 125 mg. He will continue to follow-up with his outpatient medical and psychiatric providers. I will see the patient in follow-up in 1 to 2 weeks.
--- NOTE | 2021-06-10 14:29 | BH.MDN_ITS ---
Multi-Disciplinary Note - Note 60-min Individual Time Started:: 10:40 Date: 06/10/21 Purpose of session/treatment goals addressed:: To help client calm anxiety symptoms and to teach client about intrusive thoughts. Another goal was to provide insight towards the connection between thoughts, emotions, and physical symptoms. Eye Contact:: Good Motor Activity:: Restless - agitated Appearance:: Casual Speech:: Tangential, Rambling Mood:: Anxious, Irritable Affect:: Constricted Thoughts:: Racing, Circular Staff Interventions:: psychoeducation on: - intrusive thoughts and myths about thoughts, mindfulness skills, strengths perspective, taught coping skills - calming coping skills Client Response:: Client entered session anxious and agitated. Client reported he feels frustrated with his ongoing anxiety and he almost worked himself into a panic attack. Client shared he is worried about sleep, his tremors, and an odd sensation he has been having on the left side of his head. Client reports he is worried about having a brain tumor, but client admits that he has no evidence from doctors that this would be true. Therapist led client through deep breathing and mindfulness skills. Client struggled to stay present during this, but once client started reading about intrusive thinking his anxiety decreased. Client connected with the myths about thoughts and shared he has many intrusive thoughts that impact his functioning. Client stated I can't even watch or read anything with violence because I fear I'll think about it. Client also expresses fear that he will never go back to normal and this frustrates client. Client worries about his legs not working like they used to and how his mental health impacts his . Discussed how one overcomes intrusive thoughts using radical acceptance, distraction, and not giving value to intrusive thoughts. Risks/Concerns:: Client denies any suicidal ideations, plan, or intent as of 06/10/21. Denies any homicidal ideations. Progress Toward Goals/Plan:: Limited progress to document as client's anxiety symptoms have not decreased. Client has consistent attendance which is positive. Client continues to be preoccupied with medication side effects and reports high anxiety about his health. Client reports extreme anxiety about getting a good night's sleep because the past two nights he did not. Receptive to learning abou t intrusive thoughts and connects with the myths about thoughts. Client will meet with [facility] psychiatrist today and will continue [facility] tx to prevent decompensation, improve functioning, and gain healthy coping skills. Time Stopped:: 11:35
--- NOTE | 2021-06-16 09:05 | BH.SGPN.GN ---
Behaviors/Verbalizations/Mental Status: []Client alert and oriented, casually dressed and groomed. Eye contact good. Motor activity restless. Speech rambling and tangential. Affect congruent, mood anxious and depressed. Thoughts racing and jumping from topic to topic, no signs of hallucinations or delusions. 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 Client reports feeling anxious this morning and stated that sleep has been poor lately and he had a bad morning. Client was jumping from one topic to another and acknowledged this. Client stated he had an appointment with his outpatient psychiatrist yesterday and this caused temporary relief, but client still feels highly anxious. Group provided support to client and gave coping skills for client to try. Client will meet with IOP therapist today. Appeared to benefit from connecting with peers and gaining ideas for coping. Limited progress and problems are ongoing. Will continue IOP tx to prevent decompensation and gain healthy support. Narrative Note: []
--- NOTE | 2021-06-16 10:15 | BH.SGPN.GN ---
Behaviors/Verbalizations/Mental Status: []Client alert and oriented, casually dressed and groomed. Eye contact good. Motor activity appropriate. Speech within normal limits. Affect congruent, mood anxious. Thoughts linear, logical, no signs of hallucinations or delusions. Client Response/Progress/Benefit: []Client receptive to session, participating throughout. Provided input as the group brainstormed the positive and negative aspects of stress on physical and mental health. Group did well to identify the benefits of stress as well as the impact of distress on performance and mental health. Client identified top stressors such as not getting enough sleep, causing issues in relationships and not taking time to grow additional. Client stated when stress is overflowing he will try to identify who he can unload some of his stress. Client seemed to benefit from increased awareness of current stressors and impact stress has on mental health. Recommended to continue IOP tx to decrease anxiety, increase use of healthy coping and prevent decompensation. Narrative Note: []
--- NOTE | 2021-06-16 13:34 | BH.MDN_ITS ---
Multi-Disciplinary Note - Note 60-min Individual Time Started:: 11:15 Date: 06/16/21 Purpose of session/treatment goals addressed:: To work on goal#1 of client's tx plan. Another goal was to discuss the importance of communication with his and treatment team. Eye Contact:: Good Motor Activity:: Restless - standing at times due to anxiety and wringing his hands Speech:: Tangential, Rambling Mood:: Anxious Affect:: Congruent - tearful Thoughts:: Racing Staff Interventions:: thought challenging, CBT techniques, mindfulness skills, strengths perspective, taught coping skills, other - gave homework Client Response:: Client responded well to session, open to meeting with therapist. Client presents as highly anxious today AEB disorganized speech, restlessness, and catastrophizing thoughts. Client read the chapter provided from overcoming unwanted intrusive thoughts book. Client reports he really connects with intrusive thoughts and reading about intrusive thoughts brought up a lot of memories from his young adult life. Client typed out a reflection and showed therapist. Client reports a lot of his stress, anxiety, and guilt come from triggering events in his life. These included when his parents , not having kids, and when his first . Client also realized that his anxiety worsened after senior living and following a medical hospitalization several years ago. Processed these emotions and client receptive to thought challenging and self-compassion. Client became tearful about the loses in his life and due to fear that his current will leave him because of his anxiety. Therapist taught client different strategies to manage intrusive thoughts including: looking at current evidence, mantras, healthy distractions, and giving thoughts less value. Client picked several mantras he could use when he begins to escalate. Also discussed adding self-care and healthy distractions to client's night time routine. Client reports he currently takes his medications and lays down expecting to fall asleep immediately, which only makes client more anxious and not sleep. Client identified activities such as board games, painting, audiobooks, and puzzles. Risks/Concerns:: Client denies any suicidal or homicidal ideations, plan, or intent as of 06/16/21. Client presents as somewhat disorganized in his thought process today, but no evidence of psychosis or delusions. Significantly anxious. Progress Toward Goals/Plan:: Limited progress and continuing to report significant anxiety daily. Client reports the past two days he has not been able to sleep and this gives client significant anxiety. Client reports fear his medications are not working. Client unable to function at home and reports fear that his intrusive thoughts and anxiety is impacting his relationship with his . Constant reassurance seeking, ruminations, and focus on somatic symptoms. Client receptive to bringing his in for a family session. Will continue IOP tx to prevent decompensation, monitor medication, and gain healthy coping skills. Time Stopped:: 12:10
--- NOTE | 2021-06-17 09:05 | BH.SGPN.GN ---
Behaviors/Verbalizations/Mental Status: Eye contact is good. Motor activity is restless. Appearance is casual. Speech is appropriate. Mood is anxious. Affect is congruent. Thoughts are racing and appeared preoccupied. No evidence of psychosis. Reviewed daily check in sheet with no reports of suicidal ideations, plan, or intent. Client Response/Progress/Benefit: Client was restless but engaged throughout group session indicated by offering insight to others. He reported his emotion of the day as ?fearful?. Client reported fearing being in IOP due to anxiety, as well as being fearful to ask for help. The group and clinician provided supportive feedback regarding help seeking and normalized client anxieties. Discussed with group the importance of learning healthy coping skills, which client seemed to benefit from. Will continue IOP treatment to stabilize mood, increase healthy coping skill knowledge and application, and gain insight on diagnosis. Narrative Note: []
--- NOTE | 2021-06-17 11:10 | BH.SGPN.GN ---
Behaviors/Verbalizations/Mental Status: []Client alert and oriented, casually dressed and groomed. Eye contact good. Motor activity restless. Speech tangential and off topic at times. Affect constricted, mood anxious. Thoughts racing, no signs of hallucinations or delusions. Client Response/Progress/Benefit: []Client responded well to session, but he was restless near the end of session. Client set a goal to gain control over his difficulty sleeping, but client struggle to identify a small goal for this. Receptive to help from therapist and discussed options such as working on using calming skills or self-care before bed. Client continues to worry that his psychiatric medications are causing night terrors which prevents client from sleeping next to his . Client informed that this will be shared to IOP staff and psychiatrist. Limited progress and will continue to monitor mood and medications. Appeared to benefit from identifying a small goal to benefit mental health. Will continue IOP tx to prevent decompensation and gain healthy support. Narrative Note: []
--- NOTE | 2021-06-19 11:34 | BH.AFTERPLAN ---
Aftercare Plan - Demographics Treatment End Date:: 06/19/21 Psychiatrist:: Sari Mckay Psychiatrist Office #:: [id number] [facility]/IOP Therapist:: Jonna Garcia Therapist Phone #:: [phone] - Plan Details Progress/Aftercare Plan Details:: Keny has made significant strides since starting IOP and saw a 74% reduction in overall symptoms since admission. When Keny started IOP he was experiencing a depressed mood with isolation, irritability that was impacting his functioning, and was not happy with his career. At discharge, Keny reports minimal symptoms of anger and depression. Keny has quit a job that was significantly impacting his mental health and plans to start a new job next week. Keny also reports a better mindset and an overall better mood. Keny contributed to group discussions and consistently followed through with his goals. In individual sessions, Keny was receptive to feedback, consistent with homework, and willing to push himself. Keny's DSM-5 symptoms for depression decreased by 80%, anger decreased by 100%, and anxiety decreased by 80%. Keny plans to follow up with [facility] for individual counseling and psychiatry. Strategies for Success:: 1. Continue to take time to reflect daily on your mood, triggers, happiness, and choices. 2. Progressive muscle relaxation to reduce anxiety, anger, or just to reduce tension. 3. Keep journaling your goals to hold yourself accountable. 4. Listen, play, and make music. This has been an extremely positive creative outlet for you. 5. Ask yourself is this suffering necessary or unnecessary to help you make difficult decisions or make changes. 6. Continue to keep a healthy group of supports. 7. Continue with counseling and medication - Appointments Appointments/Referrals to Other Services:: 1. Follow up with [facility] for counseling and psychiatry. Call to schedule as soon as you get your new insurance. - Medications Home Medications: Home Medications hydrocortisone 1.5 mg PO DAILY 04/27/21 levothyroxine 50 mcg PO DAILY 04/27/21 mirtazapine 7.5 mg PO QHS 04/27/21 valsartan [Diovan] 20 mg PO DAILY 04/27/21 benztropine [Cogentin] 1 mg PO DAILY 06/03/21 hydroxyzine pamoate [Vistaril] 25 mg PO TID PRN PRN 06/03/21 mirtazapine [Remeron] 7.5 mg PO QHS 06/03/21 quetiapine [Seroquel] 100 mg PO QHS 06/03/21 quetiapine [Seroquel] 25 mg PO QHS 30 Days #30 tab 06/10/21
== END 2021-06-18 23:59 ==
LOC: BHIOP 08:30
PROVIDERS: PCP Nurse Practitioner Family; Referring Provider Psychiatry & Neurology Psychiatry; Visit Provider Psychiatry & Neurology Psychiatry
DX: F33.41 Major depressive disorder, recurrent, in partial remission (principal); F41.1 Generalized anxiety disorder; F45.1 Undifferentiated somatoform disorder; Z79.899 Other long term (current) drug therapy
CPT/HCPCS: S9480; 90832; 90837; 90853

== ENCOUNTER → 2021-06-15 12:37 | Outpatient (CLI) | payer MEDICARE, SELFPAY ==
[2021-06-15 15:46] LABS: Free T3 2.5 pg/mL (2.18-3.98); T4 Free Direct 1.26 ng/dL (0.76-1.46); Thyroid Stim Hormone (TSH) 0.67 uIU/mL (0.358-3.74)
== END ==
PROVIDERS: PCP Nurse Practitioner Family; Referring Provider Psychiatry & Neurology Psychiatry; Visit Provider Psychiatry & Neurology Psychiatry
DX: E03.9 Hypothyroidism, unspecified (principal)
CPT/HCPCS: 36415; 84439; 84443; 84481

== ENCOUNTER 2021-06-23 09:00 | Outpatient (RCR) | payer MEDICARE, SELFPAY ==
--- NOTE | 2021-06-17 10:15 | BH.SGPN.GN ---
Behaviors/Verbalizations/Mental Status: [] Eye contact is good. Motor activity is appropriate. Appearance is casual. Speech is Appropriate. Mood is anxious. Affect is congruent. Thoughts are linear and logical. No evidence of psychosis. Client Response/Progress/Benefit: [] Pt was an active participant in group discussion and activity. Attentive during psychoeducation on what it means to take action. Pt identified symptoms that he wants to take gain control over which included putting things off and racing thoughts. Increased insight into what could be holding patient back from mental wellness and the importance of taking action on symptoms and obstacles rather than avoiding or ignoring. Will continue in IOP to prevent decompensation, decrease intrusive thoughts, and improve functioning. Narrative Note: []
[2021-06-19 00:38] VITALS: BP 132/74; PULSE 64
--- NOTE | 2021-06-23 09:05 | BH.SGPN.GN ---
Behaviors/Verbalizations/Mental Status: []Client alert and oriented, disheveled appearance. Eye contact good. Motor activity restless. Speech tangential. Affect constricted, mood anxious. Thoughts circular and racing, no signs of hallucinations or delusions. Reviewed client?s symptom tracker, no risk for suicidal ideation, plan, or intent as of 06/23/21. Client Response/Progress/Benefit: []Client responded well to session, reporting anxiety prior to group starting, but client did well to stay present in group. Client reports feeling worried this morning as client already had an appointment this morning that required he and his to drive through the fog. Client shared he continues to feel highly anxious most days, but overall he reports his mood has generally been better. Client shared he has been trying to use his mantras and yesterday he made applesauce with his . Client talked about racing thoughts and the fear of being a burden on his . Group helped client challenge these negative thoughts and client appeared to benefit from this. Progress noted as client did not leave group today due to anxiety. Will continue IOP tx to prevent decompensation, learn healthy coping skills, and reduce intrusive thoughts. Narrative Note: []
--- NOTE | 2021-06-23 10:05 | BH.SGPN.GN ---
Behaviors/Verbalizations/Mental Status: [] Eye contact is good. Motor activity is appropriate, at times restless. Appearance is casual, disheveled. Speech is Appropriate. Mood is anxious/overwhelmed. Affect is congruent. Thoughts are linear and logical. No evidence of psychosis. Client Response/Progress/Benefit: [] Pt was an active participant in group discussion and activity. Attentive during psychoeducation on coping skills?. Pt noted that ?Coping skills are tools we find or people we use to help us with our stressors?. Pt along with peers worked together to identify unhealthy coping skills such as; avoidance, lashing out on others, substances, isolation, catastrophizing, and self-harm. Discussed beliefs that ?Society/ads push coping mechanisms more to make money and not to truly help you cope?. Group was able to identify why people use unhealthy coping skills such as; easy, comfortable, work in the short-term, habit, or it?s what they were taught/learned from others. Pt was able to make connection between the activity (tower building) and the importance of having a strong base/foundation of both internal and external coping skills. Benefited from increased understanding of unhealthy coping skills and the need for developing healthy internal and external coping skills. Pt will continue in IOP to improve management of health anxiety, increase internal coping and thought challenge skills, as well as continue to stabilize mood. Narrative Note: []
--- NOTE | 2021-06-23 13:12 | BH.COMM ---
Communication Note - Communication with Client Communication Note: Therapist met with pt briefly to review healthy coping skills to manage intrusive thoughts and anxiety. Therapist helped pt recognize progress. Pt to meet with his outpatient therapist later this afternoon. Gave pt homework and will continue to monitor mood and progress.
--- NOTE | 2021-06-24 09:05 | BH.SGPN.GN ---
Behaviors/Verbalizations/Mental Status: Eye contact is good. Motor activity is restless. Appearance is casual. Speech is appropriate. Mood is anxious. Affect is congruent. Thoughts are racing and appeared preoccupied. No evidence of psychosis. Reviewed daily symptom tracker sheet with no reports of suicidal ideations, plan, or intent. Client Response/Progress/Benefit: Client was engaged throughout group session. Client reported his emotion of the day as ?angry with myself? due to his anxiety symptoms. Client was able to identify cognitive distortions in his thinking, including catastrophizing and taking his feelings as fact. Appeared to benefit from group discussion regarding healthy coping skills. Clinician encouraged client to sit with uncomfortable thoughts and apply healthy coping skills to increase anxiety management. Client was able to remain in group for the duration, which is great progress. Client indicates per daily symptom tracker that his ability to function has been the same. Will continue IOP treatment to improve anxiety management skills, and increase daily functioning. Narrative Note: []
--- NOTE | 2021-06-24 10:14 | BH.SGPN.GN ---
Behaviors/Verbalizations/Mental Status: []Client alert and oriented, casually dressed and groomed. Eye contact good. Motor activity appropriate. Speech within normal limits. Affect congruent, mood anxious, dysthymic. Thoughts linear, logical, no signs of hallucinations or delusions. Client Response/Progress/Benefit: []Client responded well to session, attentive and providing input throughout. Participated in discussion of things that can keep people feeling trapped or stuck in life including; avoidance, unhealthy coping, isolation, inconsistent boundaries, and surrounding self with toxic people. Shared connecting with negative and intrusive thoughts as being a barrier. Group discussed the connection between thoughts, emotions, and behaviors as well as how negative thinking can keep a person stuck. Client attentive during psychoeducation on maintenance cycles. Client able to identify negative thoughts that have kept client stuck which included ?Anxiety is an excuse?, ?I?m going crazy?, and ?I will only do what is safe?. Appeared to benefit from gaining awareness of how negative thoughts reinforce mental health symptoms and keep people stuck. Will continue IOP tx to prevent decompensation, increase anxiety management and emotion regulation skills, as well as continue to promote application of calming skills while reducing reassurance seeking behaviors. Narrative Note: []
--- NOTE | 2021-06-24 11:57 | PCM.BH.PN_ITS ---
Progress Note Progress Note: History of Present Illness/Interim History: [] Patient is a 71-year-old male with a history of somatic preoccupation, severe anxiety and depression who is seen in follow-up at the [facility] behavioral health IOP program. I last saw the patient 2 weeks ago and at that time his Seroquel was increased to 125 mg p.o. at bedtime. The patient states that he is tolerating the Seroquel well. He feels that it is somewhat easier to get to sleep on the higher dose of Seroquel. He still worries a lot and has significant anxiety but he states that his and his counselor think he is much better and much less anxious overall. He feels he is benefiting from the IOP program and is learning valuable skills to decrease his anxiety and to help him deal with his anxiety. He states however that today was a difficult day. He got up late today so was rushed to get to the IOP program. However after being here several hours he is using his skills to understand that just because he was late the whole day does not have to be ruined. During the interview he also complained of several somatic symptoms. He states that occasionally when he first stands up he gets a very mild lightheadedness if he tilts his head backwards. He has not had any loss of consciousness and he has not fallen. D iscussed with the patient that he should get up slowly and hold onto something in case he feels dizzy also he should not tilt his head back. Although quetiapine can cause low blood pressure he seems to be doing well on it so we will continue the current dose. He also states that when he gets up lately his left leg feels slightly stiff for the first 8 or 9 steps he takes but then goes back to normal. The patient has normal gait today and agrees that he can tolerate this symptom. His mood is still worried and anxious but much less so than before. He denies any passive thoughts of , suicidal ideation, homicidal ideation, hallucinations, or delusions. Current Psychiatric Medications: [] Seroquel 125 mg p.o. nightly (increased 2 weeks ago); Vistaril 25 mg up to 3 times a day as needed; Remeron 7.5 mg p.o. nightly; benztropine decreased to 0.5 mg p.o. up to twice a day but patient sometimes only takes it at bedtime. Mental Status Examination: [] The patient is a 71-year-old male who is seen wearing a mask due to the pandemic and is casually dressed and groomed with good hygiene. His gait is normal and there is no evidence of tremor or parkinsonism. He has no psychomotor agitation or retardation today. Eye contact is good and speech is normal rate and rhythm and fluent with no pressure. Mood is mildly anxious. Affect is full and normal. Thought process is goal-directed and organized. Thought content: The patient remains somewhat somatically preoccupied. There is no evidence of passive thoughts of , suicidal ideation, homicidal ideation, hallucinations or delusions. Reality testing is intact. Insight is improving. Impulsivity is low. Judgment is intact. Diagnoses: [] 1. 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 Generalized anxiety disorder 3. 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 History of hyperacusis and benign vertigo Plan: [] The patient will continue the IOP program at [facility] as the structure, support, education and group therapy will hopefully prevent worsening of the patient's symptoms. He felt safe during the interview and if it anytime he does not feel safe he will let us know or go to the emergency room. The risks, options, possible complications and side effects of the medications were again discussed with the patient and he understands and accepts these. Discussed with the patient that although he describes mild vertigo when he tilts his head back and attributes it to Seroquel he was worked up for benign vertigo in the past also. The patient will continue to keep regular sleep-wake hours and go to bed at his normal bedtime. He will continue to not take naps during the day. No medication changes were made today but refills were given on his 25 mg Seroquel prescription. I will see the patient in follow-up in 2 weeks or as needed and he will continue to follow-up with his out patient medical and psychiatric providers.
--- NOTE | 2021-06-29 10:36 | BH.TPR ---
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 Client reports each day he comes to group he is anxious, but he enjoys coming. Client reports practicing coping skills outside of the group setting and he is consistent with homework. Client has increased self-awareness, gained healthy support, and is working on catching and replacing anxious thought patterns. Status of Current Problems and Symptoms: Client's symptoms are ongoing. Client has been demonstrating progress AEB his reduced DSM-5 scores. However, client's recently had to go to the hospital which triggered increased health anxiety and a panic attack. Following this incident, client was experiencing more restlessness, worries, and agitation. Client has also been reporting more health-related intrusive thoughts over the past few days. Client worries about his and also about how his anxiety impacts the relationship. Problem #1 Problem Name:: Anxiety and health-related intrusive thoughts. Status of Goals:: Objective 1- in progress. Client?s DSM-5 scores for anxiety have decreased by 18% since admission. However, client?s symptoms of intrusive thoughts on the DSM-5 remain the same since admission. Client has learned about his triggers, anxious thought patterns, and has been able to practice calming coping skills. Client often uses breathing, self-talk, and sitting with the uncomfortable. Objective 2- partially complete. Client has been reading chapters from the Overcoming Unwanted Intrusive Thoughts book and reports it effective. Client has learned to reduce the value of his intrusive thoughts that exacerbate somatic symptoms. Team Recommendations:: Treatment team recommends that client continue working on this goal as he recently experienced a trigger that led to a setback in symptom management. Treatment team also encourages client to increase number of IOP days and to reduce safety behaviors. Problem #2 Problem Name:: Depression, sadness, and lack of motivation. Status of Goals:: Objective 1-Complete with ongoing work encouraged. Through group and individual therapy, client has learned coping skills such as thought challenging, opposite action, and healthy distractions. Client?s DSM-5 scores decreased by 43% since admission. Client has also learned about maintenance cycles and has been encouraged to practice these skills consistently. Team Recommendations:: Treatment team encourages client to continue working on this goal and to increase healthy supports. It is agreed that client could benefit from increasing social interaction to help build support and maintain routine.
--- NOTE | 2021-07-01 09:00 | BH.SGPN.GN ---
Behaviors/Verbalizations/Mental Status: []Eye contact is good. Motor activity is appropriate. Appearance is casual. Speech is rambling. Mood is anxious. Affect is congruent. Thoughts are linear and logical. No evidence of psychosis. Reviewed daily symptom tracker sheet with no reports of suicidal ideations, plan, or intent. Client Response/Progress/Benefit: []Client was engaged throughout group session. Client reported his emotion of the day as anxious, and identified that he feels anxious a lot. Client discussed a stressor of his being in the hospital and being in his home alone. At that time client called a support person and they came over and helped the client work through his feelings which is a win for him. Client appeared to benefit from supportive group environment and discussed working with his therapist to remind himself ?Thoughts are thoughts, not facts? when feeling anxious. Will continue IOP treatment to increase functioning and improve anxiety management skills. Narrative Note: []
--- NOTE | 2021-07-01 09:35 | BH.MDN ---
Multi-Disciplinary Note - Note 45-min Individual Time Started:: 08:20 Date: 07/01/21 Purpose of session/treatment goals addressed:: To work on goal #1, objective #2 of client's tx plan. Another goal was to process and discuss recent setback and panic attack. Eye Contact:: Good Motor Activity:: Restless Appearance:: Casual Speech:: Tangential, Rambling, Other - repetitive Mood:: Anxious Affect:: Constricted Thoughts:: Circular, Other - obsessive, No evidence of hallucinations/delusions noted Staff Interventions:: CBT techniques, strengths perspective, taught coping skills Client Response:: Client responded well to session, appeared anxious and distracted today, but able to be redirected. Client spoke with this therapist yesterday after having to cancel group due to anxiety. Client admits that he was having a panic attack yesterday and thought maybe he should go inpatient. Client is still anxious today, but he is doing better and able to see that inpatient was not necessary at this time. Client's panic attack was triggered by his having to go to the hospital. This made client highly anxious about her health and he had to drive home alone in the dark which triggered even more anxiety. Client's health anxiety is heightened today which is to be expected following this trigger. Client did his homework from last session discussed the importance of sitting with the uncomfortable. Reviewed the strategies discussed in the chapter given to client including identify the thought, just thoughts, accept and allow, and float and feel. Client connected with the metaphor of intrusive thoughts being like mud on a windshield. Client has been doing better with sitting with his anxiety instead of avoiding or engaging in other safety behaviors. Client expressed anxiety about going into first group, but after further processing and reviewing calming coping skills client felt able to face this anxiety-producing situation. Risks/Concerns:: Client denies any suicidal ideations, plan, or intent as of 07/01/21. Denies any homicidal ideations. Progress Toward Goals/Plan:: Client completed the DSM-5 self-assessment today and per the assessment, client's scores for depression and anxiety have decreased. Client has been reporting improved sleep as well. However, client's recently had to go to the hospital which triggered a panic attack for client. Client thought he might have to get hospitalized because of the panic attack, but client was able to talk through his symptoms over the phone. Client will continue IOP tx to prevent decompensation and further improve abiltiy to manage anxiety. Time Stopped:: 09:10
--- NOTE | 2021-07-01 11:10 | BH.SGPN.GN ---
Behaviors/Verbalizations/Mental Status: []Client alert and oriented, casually dressed and groomed. Eye contact fair. Motor activity restless. Speech within normal limits. Affect constricted, mood anxious. Thoughts linear, logical, no signs of hallucinations or delusions. Client Response/Progress/Benefit: []Pt was engaged throughout AEB participating in discussion and taking notes. Pt experienced anxiety during the activity and did well to participate, but stepped away when he needed to. Contributed as group brainstormed healthy coping skills for better managing anger which included: deep breathing, counting, exercise, DDD, and looking at the consequences of responding in anger. Pt also gained awareness of internal costs of unmanaged anger. Pt appeared to benefit from identifying different techniques to manage anger as well as gaining awareness of the costs of anger. Pt reported when their anger is unmanaged, pt becomes over-reactive and can yell. Pt selected avoiding unnecessary triggers to better manage anger. Will continue IOP tx to support pt and manage exacerbated symptoms triggered by recent stressor. Narrative Note: []
--- NOTE | 2021-07-02 10:10 | BH.SGPN.GN ---
Behaviors/Verbalizations/Mental Status: [] Eye contact is good. Motor activity is appropriate. Appearance is casual. Speech is Appropriate. Mood is anxious. Affect is congruent. Thoughts are linear and logical. No evidence of psychosis. Client Response/Progress/Benefit: [] Pt was an active participant in group discussion and activity. Attentive during psychoeducation on anger. Participated in interactive discussion on reasons for anger and some positive benefits which include; standing up for something, sports, competition, causes us to set boundaries, and motivates us into action. Participated in discussion on the emotions that underlay anger or feed anger which pt identified were fear, anxiety, embarrassment. Patient also shared how anger manifests which is yelling and bad choices. Benefited from increased understanding of anger and how it impacts individuals. Will continue in IOP to decrease intrusive thoughts, prevent decompensation, and improve functioning. Narrative Note: []
--- NOTE | 2021-07-07 09:05 | BH.SGPN.GN ---
Behaviors/Verbalizations/Mental Status: [] Eye contact is good. Motor activity is appropriate. Appearance is casual. Speech is Appropriate. Mood is anxious. Affect is congruent. Thoughts are linear and logical. No evidence of psychosis. Reviewed daily check in sheet and no reports of suicidal ideations or intent. Client Response/Progress/Benefit: [] Pt participated when prompted. Attentive. Mental health win include some increased awareness and insight since the last session. Shared that he had a meeting with a physician and he disclosed his recent struggles with anxiety. The physician stated that she always believed he was a worry wart. He states I wonder if everyone can see it?. This normalized his anxiety and the stigma stating I guess I've always been like this. In a way this made him feel better which decreased his anxiety and intrusive thoughts. Reports I'm starting to feel the benefits of this program more consistently. Decreased focus and rumination on somatic symptoms. Progress noted per pt report. Benefited from group support, encouragement, and feedback. Will continue in IOP to prevent decompensation, increase healthy skills, and decrease intrusive thoughts. Narrative Note: []
--- NOTE | 2021-07-07 10:15 | BH.SGPN.GN ---
Behaviors/Verbalizations/Mental Status: []Client alert and oriented, casually dressed and groomed. Eye contact good. Motor activity appropriate. Speech within normal limits. Affect congruent, mood euthymic, slightly anxious. Thoughts linear, logical, no signs of hallucinations or delusions. Client Response/Progress/Benefit: []Client was an engaged participant AEB listening attentively to others, taking notes, and staying engaged with group activity. Connected with the topic of pitfalls and helped the group discuss barriers that keep them from choosing a healthier path to mental wellness such as pitfalls. Group worked together to identify examples of personal pitfalls which included: negative thoughts, avoidance of things need to do, seek external validation, limited self-reflection, and maintaining toxic relationships. Progress noted with pt showing increased ability to manage anxiety independently. Client benefited from group with increased understanding of impact personal pitfalls can have on mental health. Client will continue IOP to continue use of healthy coping skills, decrease anxiety and prevent decompensation. Narrative Note: []
--- NOTE | 2021-07-07 11:15 | BH.SGPN.GN ---
Behaviors/Verbalizations/Mental Status: []Client alert and oriented, neatly dressed and groomed. Eye contact good. Motor activity appropriate. Speech within normal limits. Affect constricted, mood euthymic. Thoughts linear, logical, no signs of hallucinations or delusions Client Response/Progress/Benefit: []Client receptive of session, engaged throughout AEB client actively listening and contributing to discussion, as well as taking notes. Client completed worksheet identifying personal pitfalls impacting mental health progress. Client identified the following pitfalls: not asking for help, lack of patience, and isolation. Group learned different coping skills to help manage pitfalls. Client selected not asking for help as the pitfall client wants to overcome. Client plans to work on this by reminding himself of the benefits of reaching out and finding people who add value to his life. Benefited from identifying personal pitfalls and strategies to overcome these pitfalls. Will continue IOP tx to reinforce healthy coping skills and demonstrate long-term mood stability. Narrative Note: []
--- NOTE | 2021-07-08 09:05 | BH.SGPN.GN ---
Behaviors/Verbalizations/Mental Status: []Eye contact is good. Motor activity is appropriate. Appearance is casual. Speech is appropriate. Mood is anxious. Affect is congruent. Thoughts are linear and logical. No evidence of psychosis. Reviewed daily symptom tracker sheet with reports of 1 out of 5 suicidal ideations, 1 out of 5 intent, denies any plan. Staff to meet with client to further assess for risk. Client Response/Progress/Benefit: []Client was engaged throughout group session, and reported his emotion of the day as anxious. Client discussed waking up at 3am and being unable to get back to sleep. Client reports that in the past he experienced racing thoughts when this happened, which led him to worry it would happen again. Client stated he did not however experience racing thoughts this time, which he recognized as progress. Client receptive of encouragement and appeared to benefit from supportive group environment. Client indicates per daily symptom tracker moderate-severe agitation and anxiety. Client indicates that his mood and ability to function have been generally the same per daily symptom tracker. Will continue IOP treatment to prevent decompensation and improve application of healthy coping skills. Narrative Note: []
--- NOTE | 2021-07-08 10:10 | BH.SGPN.GN ---
Behaviors/Verbalizations/Mental Status: []Client alert and oriented, casually dressed and groomed. Eye contact good. Motor activity appropriate. Speech tangential. Affect constricted, mood euthymic. Thoughts linear, logical, no signs of hallucinations or delusions. Client Response/Progress/Benefit: []Client engaged during session AEB client contributing thoughts throughout discussion and completing worksheet. Connected with discussion on crisis and how coping with external crises by using unhealthy coping skills could result in a personal crisis. Able to give examples of unhealthy coping skills people use to manage crisis. Group reflected on the importance of having awareness of personal warning signs to prevent reaching crisis point. Client did not complete the warning signs worksheet, but he did report that racing thoughts and poor sleep are warning signs. Client benefited by increasing awareness of what leads to crisis and personal warning signs. Client demonstrating progress AEB reduced restlessness in group and reduced panic attacks. Will continue IOP tx to further improve mood stability and reduce anxiety symptoms. Narrative Note: []
--- NOTE | 2021-07-08 15:33 | BH.MDN ---
Multi-Disciplinary Note - Note 30-min Individual Time Started:: 11:30 Date: 07/08/21 Purpose of session/treatment goals addressed:: To address current stressors, reivew healthy coping skills, and discuss discharge. Symptoms/Behavior:: Social work international freight forwarder was present during the session. Client gave consent for this. Eye Contact:: Good Motor Activity:: Appropriate Appearance:: Casual Speech:: Tangential, Rambling, Other - repetitive Mood:: Euthymic, Anxious Affect:: Congruent Thoughts:: Other - loose associations, No evidence of hallucinations/delusions noted Staff Interventions:: CBT techniques, mindfulness skills, discharge planning, strengths perspective Client Response:: Client responded well to session, open to meeting with therapist. Client was making jokes and laughing throughout session, which is progress as this was one of the first sessions where client was not highly anxious. Reviewed client's homework from last session and he reported that giving his intrusive thoughts less value has been helpful. Reflected on client's progress since starting IOP which included reduced avoidance, reduced restlessness, increase ability to manage anxiety, and improved functioning. Discussed thoughts on discharging in the next two weeks and client felt anxious about this. Discussed the plan for aftercare including individual sessions and weekly IOP aftercare group. Client did well throughout session of catching catastrophizing thoughts with help from therapist and practicing his healthy coping skills. Client has been reading chapters from the overcoming unwanted intrusive thoughts book and finds this helpful. Client reported a current stressor right now is that he has been waking in the middle of the night and when he cannot sleep he goes downstairs and screams. Client reports this upsets his , but he does not know what else to do. Taught client different deep breathing techniques including a fire breath to use instead of screaming. Risks/Concerns:: Client denies any suicidal ideations, plan, or intent. Denies any homicidal ideations. Progress Toward Goals/Plan:: Client continues to make progress towards goals as client reports reduced anxiety this week and he has been demonstrating increased ability to manage anxiety in the moment. Client's sleep is overall improved, but he has been waking in the middle of the night. Client's restlessness has decreased in the group setting and he is more engaged. Client continues to engage in some safety behaviors such as googling symptoms and medications. Client still is preoccupied with his medications and somatic symptoms, but is getting better at coping with these worries. Will continue IOP tx to promote gains, reinforce healthy coping skills, and further improve ability to manage intrusive thoughts. Time Stopped:: 12:00
--- NOTE | 2021-07-14 10:20 | BH.SGPN.GN ---
Behaviors/Verbalizations/Mental Status: []Client alert and oriented, casually dressed and groomed. Eye contact good. Motor activity appropriate. Speech within normal limits. Affect constricted, mood euthymic. Thoughts linear, logical, no signs of hallucinations or delusions. Client Response/Progress/Benefit: []Pt was an active participant in group discussions and activity. Attentive during psychoeducation. Along with peers provided insight into topics discussed which included; What is social support? Why is social support important? What are the benefits of using our supports? How does a lack of strong social supports impact our mental health and symptom management? Pt reported having a healthy support system ?reduces the risk of you falling and struggling.? Participated in activity and was able to connect the activity to the topic of creating and maintaining a balance of social supports. Benefited from increased awareness of the benefits to a balanced social support and barriers to utilizing social support. Progress noted in pt?s improved mood while at IOP and no recent report of panic attacks. Will continue in [facility] to promote gains, further improve mood stability, and establish aftercare. Narrative Note: []
--- NOTE | 2021-07-14 11:18 | BH.SGPN.GN ---
Behaviors/Verbalizations/Mental Status: []Client alert and oriented, casually dressed and groomed. Eye contact good. Motor activity appropriate. Speech within normal limits. Affect congruent, mood anxious. Thoughts linear, logical, no signs of hallucinations or delusions. Client Response/Progress/Benefit: []Client remained an active participant throughout AEB contributing to discussion and taking notes throughout. Client participated in the group activity highlighting the various barriers to effectively utilizing supports and strategies for improving support. Participated in discussion of the 5 ways our supports can support us (emotional, tangible, affirmational, network/belonging, and instructional) and the group listed examples for all types. Client reports wanting to work on increasing emotional support, noting this will help him to feel more uplifted by others. Client plans to do this by finding out how others view his worth. Client seemed to benefit from identifying the type of support and how this support will aid in promoting overall mental wellness. Will continue with IOP tx to promote healthy communication with supports, reduce reassurance seeking, and prevent decompensation. Narrative Note: []
--- NOTE | 2021-07-14 15:22 | BH.MDN ---
Multi-Disciplinary Note - Note 30-min Individual Time Started:: 09:25 Date: 07/14/21 Purpose of session/treatment goals addressed:: To review healthy coping skills, discuss discharge, and process any current stressors. Eye Contact:: Good Motor Activity:: Appropriate Appearance:: Casual Speech:: Tangential, Rambling, Other - repetitive Mood:: Euthymic, Anxious Affect:: Congruent Thoughts:: Circular, Other - tangential, No evidence of hallucinations/delusions noted Staff Interventions:: thought challenging, mindfulness skills, discharge planning, strengths perspective, other - Acceptance and cost-benefit analysis. Client Response:: Client responded well to session, open to meeting with therapist. Client does well in session when prompted, but he does go off on tangents that are sometimes very loosely associated to the topic discussed. Client shared he has been doing well, and his has mentioned seeing progress. Client stated he has been sleeping through the night and he believes this is due to the Seroquel. Client reports he feeling frustrated at times and has a hard time accepting the events that led me up to being in [facility]. This makes client have a hard time accepting that he might have to be on medications for a long period of time. Discussed feelings as well as the pros and cons of medications. Client also reflected on other hard truths to accept in his life such as his first passing away and not having any children. Client reports feeling better after processing these emotions rather than suppressing them. Discussed discharge and client agrees that he will be ready to discharge from [facility] next week. Client is not yet sure if he can participate in [facility] aftercare due to potentially going to [place] with his for the winter. Risks/Concerns:: Client denies any suicidal ideations, plan, or intent as of 07/14/21. Client denies any homicidal ideations. Progress Toward Goals/Plan:: Client continues to make progress towards goals as client continues to report no panic attacks, improved mood, and he has been demonstrating increased ability to manage anxiety in the moment. Client's sleep is good and he has no complaints about this or his appetite. Client continues to have moments of grief when he talks about his first or his father. Client still is preoccupied with his medications and is interested to see if he can discontinue any medications in the future. Discussed the pros and cons of medication management. Will continue IOP tx to promote gains, reinforce healthy coping skills, and further improve ability to manage intrusive thoughts. Client agreeable to discharging from IOP next week should he continue to maintain gains. Time Stopped:: 10:00
--- NOTE | 2021-07-15 10:10 | BH.SGPN.GN ---
Behaviors/Verbalizations/Mental Status: [] Eye contact is good. Motor activity is appropriate. Appearance is neat. Speech is Appropriate. Mood is anxious. Affect is congruent. Thoughts are linear and logical. No evidence of psychosis. Client Response/Progress/Benefit: [] Pt was an active participant in group discussion and activity. Attentive during psychoeducation. Pt participated in interactive group discussion in which group defined fixed mindset and provided insight on how a fixed mindset could impact mental health and result in; being closed to new possibilities, focusing only on how things are unfair, could lead to helplessness, could lead to feelings of not being in control, could cause one to feel like a failure, and could cause one to ignore any success. Interacted and worked well with peers in small group. Fixed mindset thoughts that were overheard during activity included; This won't work, this didn't work before, I don't think this matters, Its hard. I'm nervous, this sucks, this is impossible, I'm not good at this, we will fail. Benefited from increased awareness on the role of fixed mindset on mental health. Will continue in IOP to maintain gains, decrease intrusive thoughts, and prevent decompensation. Narrative Note: []
--- NOTE | 2021-07-15 11:10 | BH.SGPN.GN ---
Behaviors/Verbalizations/Mental Status: []Client alert and oriented, casually dressed and groomed. Eye contact good. Motor activity appropriate. Speech within normal limits. Affect congruent, mood euthymic. Thoughts linear, logical, no signs of hallucinations or delusions. Client Response/Progress/Benefit: []Client engaged during activity and discussion AEB remaining attentive, providing increased input, and taking notes throughout. Client worked in small group to apply skills learned to reframe own personal fixed thoughts. Appeared to benefit from suggestions provided by peers. Reframed personal fixed thought of ?this takes too much work? with growth mindset thought of ?it?s worth doing the work because of the reward?. Client also picked a strategy from the list of suggestions to develop a growth mindset. Benefitted from discussing benefits of growth mindset and brainstorming strategies for prompting growth-mindset. Progress noted as client has been showing consistent improvement in mood for the past two weeks. continue IOP tx promote gains, reinforce healthy coping skills, and establish aftercare. Narrative Note: []
--- NOTE | 2021-07-15 12:14 | PCM.BH.PN ---
Progress Note Progress Note: History of Present Illness/Interim History: [] The patient is a 71-year-old male with a history of somatic preoccupation, severe anxiety, and depression who is seen in follow-up at the [facility] behavioral health IOP program. I last saw the patient 3 weeks ago and since that time he has been doing well with the support and education given to him in the IOP program. He has been stable for several weeks now regarding his level of anxiety and depression. He is much better able to control his intrusive thoughts, worries and anxiety. The patient states I have been good. And my sleep is better. The patient feels he has learned valuable skills to help him try to control his significant anxiety. He still is somewhat perseverating on somatic symptoms such as feeling mild stiffness in his legs sometimes when he first stands up. He states that this goes away after he takes 2 steps or so but it concerns him. In addition he is self-conscious about returning to his catholic because he and his have not been there for over a month. In addition he feels that he has a little afraid to drive lately because he has not been driving for a while. He agrees to use some of the skills he is learning to deal with these issues. He denies passive thoughts of , suicidal ideation, homicidal ideation, hallucinations or delusions. Current Psychiatric Medications: [] Seroquel 125 mg p.o. nightly; Vistaril 25 mg up to 3 times a day as needed; Remeron 7.5 mg p.o. nightly; benztropine 0.5 mg up to twice a day but patient takes it only at bedtime lately. Mental Status Examination: [] Patient is a 71-year-old male who is seen wearing a mask due to the pandemic and is casually dressed and groomed with good hygiene. He has no psychomotor agitation or retardation. Eye contact is good and speech is normal rate and rhythm and fluent with no pressure. Mood is mildly anxious. Affect is full and normal. Thought process is goal-directed and organized. Thought content: The patient remains somewhat somatically preoccupied but there is no evidence of passive thoughts of , suicidal ideation, homicidal ideation, hallucinations or delusions. Insight is fair to good. Impulsivity is low. Judgment is intact. Diagnoses: [] 1. 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 Major depressive disorder in partial remission 4. 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 History of hyperacusis and benign vertigo Plan: [] The patient will continue the IOP program as the structure, support, education and group therapy will hopefully prevent worsening of the patient's symptoms. He felt safe during the interview and if it anytime he does not feel safe he will let us know or go to the emergency room. The risks, options, possible complications and side effects of the medications were again discussed with the patient and he understands and accepts these. The patient is encouraged not to look up side effects of medications as he tends to perseverate on all of the side effects he reads about. The patient is given a refill for his hydroxyzine prescription and for his Remeron prescription. He will continue to follow-up with his outpatient psychiatric and medical providers and I will see him in follow-up while he is in the IOP program.
== END 2021-07-19 23:59 ==
LOC: BHIOP 09:00
PROVIDERS: PCP Nurse Practitioner Family; Referring Provider Psychiatry & Neurology Psychiatry; Visit Provider Psychiatry & Neurology Psychiatry
DX: F45.1 Undifferentiated somatoform disorder (principal); F41.1 Generalized anxiety disorder; F32.9 Major depressive disorder, single episode, unspecified; Z79.899 Other long term (current) drug therapy
CPT/HCPCS: S9480; 90832; 90834; 90853

== ENCOUNTER 2021-07-21 09:00 | Outpatient (RCR) | payer MEDICARE, SELFPAY ==
[2021-07-20 00:29] VITALS: BP 132/74; PULSE 64
--- NOTE | 2021-07-21 10:15 | BH.SGPN.GN ---
Behaviors/Verbalizations/Mental Status: []Client alert and oriented, casually dressed and groomed. Eye contact good. Motor activity appropriate. Speech within normal limits. Affect constricted, mood euthymic. Thoughts linear, logical, no signs of hallucinations or delusions. Client Response/Progress/Benefit: []Pt was well engaged in group AEB taking notes, providing input, and listening attentively throughout. Attentive during psychoeducation and discussed the importance of goal-setting with the group. Group identified potential benefits of having goals to include: to better oneself, increase self-confidence, improve relationships, create better boundaries, and improve mental health. Group also worked together to identify barriers to goal-setting which included; self-doubt, fear of failure, fear of success, and lack of motivation. Pt reported he struggles at times with giving himself credit for the small goals he accomplishes. Benefited from increased awareness of benefits and barriers to goal-setting. Progress noted as client has been consistently reporting improved mood. Will discharge from [facility] tx tomorrow. Narrative Note: []
--- NOTE | 2021-07-21 11:18 | BH.SGPN.GN ---
Behaviors/Verbalizations/Mental Status: []Client alert and oriented, casually dressed and groomed. Eye contact fair to good. Motor activity appropriate. Speech within normal limits. Affect congruent, mood anxious and euthymic. Thoughts linear, logical, no signs of hallucinations or delusions. Client Response/Progress/Benefit: []Pt was a semi-active participant in group discussions and activities. Engaged in activity, though struggled with remaining fully engaged throughout discussion. At times provided input and on other occasions appeared to disengage. Pt did not complete the SMART goal setting worksheet as he shared he is discharging tomorrow and will not have a chance to follow-up with anyone on whether or not he achieved this goal. Receptive of discussing the importance of healthy goal setting and did indicate wanting to continue to improve his anxiety management skill. Appeared to benefit from supportive environment and group discussion. Recommended continued tx on the outpatient level to prevent decompensation and continue to improve anxiety management. Narrative Note: []
--- NOTE | 2021-07-21 13:43 | BH.MDN ---
Multi-Disciplinary Note - Note 30-min Individual Time Started:: 09:25 Date: 07/21/21 Purpose of session/treatment goals addressed:: The purpose of this session was to review client's progress and review strategies that will promote mood stability and gains made in [facility]. Another goal was to discuss discharge recommendations and process any current stressors. Eye Contact:: Good Motor Activity:: Appropriate Appearance:: Casual Speech:: Tangential Mood:: Euthymic, Anxious Affect:: Congruent Thoughts:: Other - loose associations Staff Interventions:: discharge planning, strengths perspective Client Response:: Client responded well to session, open to meeting with therapist. Client reports he recognizes he is doing more and he appears less anxious on the outside. Client shared he still feels anxious on the inside though, but client recognizes that he will have to manage anxiety for the rest of his life. Client self-reported progress in reduced catastrophizing, increased ability to manage anxiety, and overall better mood. Client still has some stressors that give him anxiety including going to [place] for the winter and medication management. Client also worries that he should be doing more in his community, but he recognizes he often sets unrealistic goals for himself. Client plans to follow up with his outpatient counselor and would like to participate in [facility] aftercare to maintain gains. Also reviewed healthy coping skills he could use such as grounding, breathing, talking with his , acceptance, and dismissing anxious thoughts. Risks/Concerns:: Client denies any suicidal ideations, plan, or intent as of 07/21/21. Progress Toward Goals/Plan:: Client has made significant progress since admission AEB his reduced restlessness, increased ability to manage anxiety in the moment, and his self-report of reduced catastrophizing. Client has gained many healthy coping skills to better manage anxiety and intrusive thoughts. Client has not had a panic attack in over three weeks and he has been able to sit through group without being agitated and restless. Client also ruminates much less during sessions and his healthy anxiety has decreased. Client will discharge from [facility] tomorrow and he will transition to outpatient counseling and IOP aftercare. Time Stopped:: 10:00
--- NOTE | 2021-07-22 07:27 | BH.AFTERPLAN ---
Aftercare Plan - Demographics Treatment End Date:: 07/22/21 Psychiatrist:: Sari Mckay Psychiatrist Office #:: [phone] [facility] Therapist:: Jonna Garcia Therapist Phone #:: [phone] - Plan Details Progress/Aftercare Plan Details:: Zeus has made significant strides since starting IOP as shown by his improved mood, increased confidence in his skills, and increased ability to cope with daily stressors. When Zeus started IOP he was experiencing significant anxiety and panic attacks. Zeus was unable to concentrate, he was restless, and he was very anxious about his health. Zeus could not make it through group without having to get up and walk or check-in with a therapist. Zeus felt irritable, worried, and frustrated about his symptoms and feared how these would impact his relationship. Now Zeus is able to catch his catastrophizing and intrusive thoughts more easily. He practices coping skills outside of IOP and he has been much more present during groups. Zeus?s restlessness significantly decreased and so did his health anxiety. Zeus reports reduced panic, improved sleep, and more enjoyment in life. eZus plans to follow up with his outpatient providers to maintain mood stability. Strategies for Success:: 1. Labeling your anxious thoughts (catastrophizing, intrusive, etc). 2. Just thoughts! Thoughts are thoughts not facts. Just because you think it does not make it true. 3. Breathe! Low and slow breaths. 4. Talk it out with your supports. 5. Look at your post-it notes and use self-talk. 6. Self-care like painting, walking, playing games, and reading. 7. Remember that intrusive thoughts are like mud on a windshield. Try to not give them much value and keep going forward. - Appointments Appointments/Referrals to Other Services:: 1. Dr. Thompson for medication management. 2. Kate [facility] for individual counseling 3. IOP aftercare on from 2-3:30pm. - Medications Home Medications: Home Medications hydrocortisone 1.5 mg PO DAILY 04/27/21 levothyroxine 50 mcg PO DAILY 04/27/21 valsartan [Diovan] 20 mg PO DAILY 04/27/21 benztropine [Cogentin] 0.5 mg PO BID 06/03/21 hydroxyzine pamoate [Vistaril] 25 mg PO TID PRN PRN 06/03/21 quetiapine [Seroquel] 25 mg PO QHS 30 Days #30 tab 06/24/21 quetiapine [Seroquel] 100 mg PO QHS #30 tab 06/24/21 hydroxyzine pamoate 25 mg PO TID 30 Days #90 cap 07/15/21 mirtazapine [Remeron] 7.5 mg PO QHS 30 Days #90 tab 07/15/21
--- NOTE | 2021-07-22 09:01 | BH.SGPN.GN ---
Behaviors/Verbalizations/Mental Status: []Eye contact is good. Motor activity is appropriate. Appearance is casual. Speech is Appropriate. Mood is anxious and hopeful. Affect is congruent. Thoughts are linear and logical. No evidence of psychosis. Reviewed daily check in sheet and no reports of suicidal ideations or intent. Client Response/Progress/Benefit: []Pt responded well to session AEB pt sharing thoughts and feelings, listening attentively to others and providing feedback to others. Pt stated he is feeling bittersweet about today being his last day in [facility]. Pt reported he can note significant progress with improved ability to manage anxiety, improved sleep and no longer experiencing heightened sounds. Pt spoke highly about the [facility] program, stating the program has helped him dramatically. Pt stated current stressor is deciding if he wants to go to [place] for the summer. Pt is to discharge from [facility] today. Narrative Note: []
--- NOTE | 2021-07-22 10:10 | BH.SGPN.GN ---
Behaviors/Verbalizations/Mental Status: []Eye contact is good. Motor activity is appropriate. Appearance is casual. Speech is Appropriate. Mood is anxious, euthymic. Affect is congruent. Thoughts are linear and logical. No evidence of psychosis Client Response/Progress/Benefit: []Pt was an attentive participant in group discussion AEB taking notes and contributing at various points throughout. Attentive during psychoeducation on Conflict Styles ( Avoidant, Competing, Accommodating, and Collaborating). Shared that? If we let people know ?I?m not backing down, let?s address this? it can help prevent more conflict later on?. Participated in interactive group discussion on benefits of conflict.? Pt noted that ?competing styles may prevent you from ever actually winning?. Pt along with peers identified several reasons conflict is often avoided which included; anxiety, fear of other?s reaction, not wanting to face additional conflict, and negative past experiences. Pt reported connecting most with collaborating conflict resolution style. Discussed that this has further improved since attending the IOP program. Benefited from increased awareness on conflict styles. Will discharge from IOP tx on this date and is recommended continued outpatient tx to maintain gains and continue to reduce anxiety. Narrative Note: []
--- NOTE | 2021-07-22 11:10 | BH.SGPN.GN ---
Behaviors/Verbalizations/Mental Status: []Client alert and oriented, casually dressed and groomed. Eye contact good. Motor activity appropriate. Speech within normal limits. Affect congruent, mood euthymic. Thoughts linear, logical, no signs of hallucinations or delusions. Client Response/Progress/Benefit: []Client engaged in session AEB taking notes and participating when prompted. Client did well to review conflict styles and the various impacts of each on mental health. 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 Client reports he will continue to practice using the skill of finding common ground with people when there is a conflict. Appeared to benefit from gaining strategies to help client better manage conflict. Client has made significant progress AEB reduced symptoms, self-report of improved functioning, and reduced restlessness. Will discharge from [facility] tx today and continue with outpatient counseling. Narrative Note: []
--- NOTE | 2021-07-22 14:14 | BH.DS_ITS ---
Discharge Summary - Demographics Date of Admission:: 06/02/21 Discharge Date: 07/22/21 Presenting Problems at Admission:: Client is a 71-year-old male with a history of depression and anxiety. Client was referred to [facility] following a psychiatric admission from 04/28/21-05/02/21. Client was admitted due to severe anxiety, restlessness, intrusive thoughts, and hallucinations. At admission, client was hyperfocused on somatic complaints which he associated with recent medication changes. Client had been experiencing intrusive thoughts about his health, dying, and being like this for my whole life. Client reported he had been pacing since getting discharged from the hospital and reported excessive energy. Client was experiencing anxiety and ruminations daily. Client's symptoms were impacting his social and marital functioning. 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 Client no longer meets criteria for [facility] level of care and will transition to outpatient counseling and [facility] aftercare. - Treatment Progress During Treatment & Response: Client has made significant strides since starting IOP as shown by his improved mood, increased confidence in his skills, and increased ability to cope with daily stressors. When Client started IOP he was experiencing significant anxiety and panic attacks. Client was unable to concentrate, he was restless, and he was very anxious about his health. Client could not make it through group without having to get up and walk or check-in with a therapist. Client felt irritable, worried, and frustrated about his symptoms and feared how these would impact his relationship. Now Client can catch his catastrophizing and intrusive thoughts more easily. He practices coping skills outside of IOP and he has been much more present during groups. Client?s restlessness significantly decreased and so did his health anxiety. Cli ent reports reduced panic, improved sleep, and more enjoyment in life. Client's hyperacusis was gone by discharge as well which was significant as it can be triggered by stress. Client?s overall DSM-5 scores have decreased by 44% since admission. Depression decreased by 57%, anxiety decreased by 36%, thoughts of hurting himself decreased by 100%, and unpleasant thoughts/urges repeatedly entering his mind reduced by 50%. Issues Still to be Addressed:: Client can benefit from ongoing outpatient counseling to further improve mood stability, reinforce coping skills to manage intrusive thinking, and process daily stressors. Client can also continue to work on communication skills with his , emotional regulation skills, and self-care. Discharge Recommendations/Instructions:: Client plans to follow up with Dr. Thompson for medication management and Kate Vidal for individual therapy. Client will also participate in IOP aftercare group starting on 07/30/21. Discharge Handout: Complete Discharge Handout with client on aftercare options and continuity of care.
== END 2021-07-22 13:23 | disposition home or self-care (01) ==
LOC: BHIOP 09:00
PROVIDERS: PCP Nurse Practitioner Family; Referring Provider Psychiatry & Neurology Psychiatry; Visit Provider Psychiatry & Neurology Psychiatry
DX: F45.1 Undifferentiated somatoform disorder (principal); F41.1 Generalized anxiety disorder; F32.9 Major depressive disorder, single episode, unspecified
CPT/HCPCS: S9480; 90832; 90853

== ENCOUNTER 2021-07-30 09:00 | Outpatient (RCR) | payer MEDICARE, SELFPAY ==
--- NOTE | 2021-07-30 14:00 | BH.SGPN.GN ---
Behaviors/Verbalizations/Mental Status: []Client alert and oriented, casual appearance. Eye contact good. Motor activity appropriate. Speech within normal limits. Affect congruent, mood anxious. Thoughts linear, logical, no signs of hallucinations or delusions. Client Response/Progress/Benefit: []Pt responded well to session AEB pt openly sharing thoughts and feelings and completing worksheet. Pt reported feeling stressed today because he had his first night terror since March. Pt reported feeling anxious about going to sleep tonight because might have another night terror. With help pt recognized the importance of not predicting the future and agreed to engage in calming activities before bed. Pt identified mental health wins as decreased restlessness and decreased catastrophizing. Pt responded well to group discussion and review about self-care. Pt stated he will work on following self-care activities: work on relationship, work on visitation plan for [place], be proactive by preparing for day, eat healthy, plan to to opera. Pt seemed to benefit from support from peers and identifying self-care plan. Pt to continue aftercare to prevent decompensation and continue use of healthy coping.
--- NOTE | 2021-07-30 16:04 | BH.MTP ---
Master Treatment Plan - Patient Information Program Physician:: Dr. 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 - Objectives Objective #1 Stated Objective: Client will continue to consistently apply healthy coping skills to maintain progress made in IOP tx. Interventions: Through group therapy, client will review warning signs and triggers as well as healthy coping skills learned in IOP tx to successfully maintain gains while transitioning into outpatient therapy. Discharge Criteria: Client will have accomplished this goal when client's score on the DSM-5 cross-cutting measure has either maintained or reduced over a 12 week period. Target Date: 11/05/21 Review Date: 09/10/21 Objective #2 Stated Objective: Client will learn and utilize 2-3 maintenance strategies to prevent decompensation. Interventions: Through group therapy, client will be provided with education on healthy maintenance behaviors, relapse prevention techniques, and healthy coping strategies. Discharge Criteria: Client will have accomplished this goal when can report using at least 2 maintenance skills to prevent decompensation. Target Date: 11/05/21 Review Date: 09/10/21
--- NOTE | 2021-08-06 14:00 | BH.SGPN.GN ---
Behaviors/Verbalizations/Mental Status: []Client alert and oriented, casually dressed and groomed. Eye contact good. Motor activity appropriate. Speech within normal limits. Affect congruent, mood anxious and euthymic. Thoughts linear, logical, no signs of hallucinations or delusions. Client Response/Progress/Benefit: []Pt responded well to session, provided input, and listened attentively to peers. Reported feeling as though ?things are going well? today, explaining that he is continuing to make progress in identify and challenge cognitive distortions, as well as remind himself that ?thoughts are thoughts, not facts?. Expressed this has aided in continuing to reduce overall anxiety levels. Went on to share chanting at night has helped with reducing night terrors. Identified a stressor as an upcoming trip to [place], though notes reaching out to his for support and addressing specific concerns related to the trip. Client engaged in discussion on self-advocacy. Worked with group to identify the benefits of self-advocacy, as well as common barriers. Reviewed the personal bill of rights and shared he does well to advocate for the right to ?ask for what I want??. Discussed struggling with personal right of ?I have the right to make mistakes and not have to be perfect?. Noted plans to take steps in better advocating for this right by allowing himself he no longer has to take on a professional role and is allowed to ?just be Zeus?. Client seemed to benefit from reviewing treatment progress and skill application, as well as learning about how to increase self-advocacy. Client to continue aftercare to promote gains, prevent regression, and further improve functioning. Narrative Note: []
== END 2021-08-18 23:59 ==
LOC: BHOG 09:00
PROVIDERS: PCP Nurse Practitioner Family; Visit Provider Psychiatry & Neurology Psychiatry
DX: F45.1 Undifferentiated somatoform disorder (principal); F41.1 Generalized anxiety disorder; F33.41 Major depressive disorder, recurrent, in partial remission
CPT/HCPCS: 90853

== ENCOUNTER 2021-08-20 09:00 | Outpatient (RCR) | payer MEDICARE, SELFPAY ==
--- NOTE | 2021-08-20 14:00 | BH.SGPN.GN ---
Behaviors/Verbalizations/Mental Status: []Client alert and oriented, casually dressed and groomed. Eye contact fair. Motor activity appropriate. Speech within normal limits. Affect congruent. Mood euthymic. Thoughts linear, logical, no signs of hallucinations or delusions. Client Response/Progress/Benefit: [] Client identified mental health positive as getting his covid booster shot. Client stated a stressor and positive is finding out that his friend was giving him muffins made with some marijuana. Client identified this is a stressor because was deceived by a good friend, yet a positive because believes this can explain why he was experiencing racing thoughts. Client reported this knowledge does provide him some relief. Additional positives as using anxiety reduction skills daily that have helped stabilize mood. Client contributed to the discussion on gratitude and its benefits. Client attentive during discussion of internal vs. external gratitude. Client stated he will create his gratitude calendar throughout the week. Appeared to benefit from connecting with peers and creating plan to identify gratitude. Will continue IOP aftercare to continue use of healthy coping skills and maintain gains made. Narrative Note: []
--- NOTE | 2021-08-27 14:00 | BH.SGPN.GN ---
Behaviors/Verbalizations/Mental Status: []Client alert and oriented, neatly dressed and groomed. Eye contact good. Motor activity appropriate. Speech within normal limits. Affect constricted, mood euthymic. Thoughts linear, logical, no signs of hallucinations or delusions Client Response/Progress/Benefit: []Client responded well to session, reports feeling ?calmed down? today as client was ?worked up? due to losing his keys before coming to IOP, but he used calming skills and feels better now. Client stated he has been doing well and he feels like he is ?on the positive side of recovery.? Client reports consistent use of affirmations and he has been keeping busy. Contributing during discussion of vulnerability and benefits of practicing vulnerability. Shared being vulnerable has benefitted him a lot in life, most recently being vulnerable has helped him gain more control over his anxiety. Discussed ways we avoid feeling vulnerable and how this negatively affects mental health and relationships. Client shared he avoids being vulnerable by striving for perfection and not ?allowing myself to celebrate accomplishments.? Appeared to benefit from reflecting on the positive impact vulnerability can have on mental health. Will continue [facility] aftercare to promote gains and reinforce healthy coping skills. Narrative Note: []
--- NOTE | 2021-09-03 14:00 | BH.SGPN.GN ---
Behaviors/Verbalizations/Mental Status: []Client alert and oriented, neatly dressed and groomed. Eye contact good. Motor activity appropriate. Speech within normal limits. Affect congruent, mood euthymic. Thoughts linear, logical, no signs of hallucinations or delusions. Client Response/Progress/Benefit: []Pt receptive of session, engaged throughout. Pt identified current stressor as having vertigo issues with no medial diagnosis or solution. Pt identified mental health positive as able to get outside. Stated additional mental health positives are improved sleep and using skills to help manage intrusive thoughts. Receptive of discussion on personal accountability and its importance in maintaining mental health stability. Pt worked cooperatively with group to identify benefits of maintaining personal accountability. Engaged in brainstorming strategies for improving ability to hold themselves accountable. Pt seemed to benefit from support from peers and increasing understanding of personal accountability benefits and strategies. Will continue IOP aftercare group to maintain gains and prevent decompensation.
--- NOTE | 2021-09-03 14:00 | BH.TPR ---
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 Status of Current Problems and Symptoms: Pt continues to experience mild symptoms of depression and anxiety per his DSM-5, though has seen significant improvements in overall ability to manage these symptoms compared with IOP discharge scores. Client's anxiety scores have reduced by 57% and depression scores have seen a 33% reduction since his IOP discharge. Client recently has been struggling to make a decision about traveling with his to [place] which has been an additional stressor. Pt is continuing to make progress in engaging in healthy activities he enjoys such as painting and is reporting less time spent ruminating. Client reports improved ability to catch early warning signs and use of distortions and is doing well to challenge these as well as reports he has been using coping skills more consistently. Problem #1 Problem Name:: Pt will maintain or see a reduction in mental health symptoms Status of Goals:: obj 1 - complete with ongoing work encouraged. Per pt's DSM 5 scores for anxiety have reduced by 57% and depression scores have decreased by 33% since discharge from [facility]. Per DSM 5 scores at review his overall symptoms have decreased by 58%. obj 2 - complete with ongoing work encouraged. Client has been consistently reporting use of painting, challenging his distortions and reminding himself that ?thoughts are thoughts, not facts?, and communicating with supports. Continues to struggle with some reassurance seeking but is displaying improvements in this area. Team Recommendations:: pt continue IOP aftercare group in addition to attending regular outpatient counseling in order to decrease depressive and anxious symptoms as well as promote further gains.
--- NOTE | 2021-09-17 14:05 | BH.SGPN.GN ---
Behaviors/Verbalizations/Mental Status: []Client alert and oriented, casual dress, hygiene tended to. Eye contact good. Motor activity appropriate. Speech within normal limits. Affect congruent, mood anxious, euthymic. Thoughts linear, logical, no signs of hallucinations or delusions. Client Response/Progress/Benefit: [] Client responded well to session, attentive and engaged throughout. Client reported feeling ?jumpy but peaceful today?, discussing ongoing difficulties with managing his anxiety though feels he continues to make progress in ability to do so. Identified trying to ?be more present? has allowed him to reduce rumination and better prevent panic escalation. Additionally, shared he has been spending time painting, illustrating and exploring his tejinder which he finds helpful in maintaining mental health and wellness as well. Participated in discussion on making healthy choices and the barriers keeping clients from making healthy choices. Client identified his personal barriers as not wanting to confront difficult topics with others, grief/emotions, and fear. Client attentive and contributing to discussion of strategies to improve healthy decision making. Shared wanting to be more open with supports in the decision making process. Appeared to benefit from reflecting on application of coping skills, identifying barriers, and discussing strategies to improve healthy decision-making skills. Narrative Note: []
== END 2021-09-18 23:59 ==
LOC: BHOG 09:00
PROVIDERS: PCP Nurse Practitioner Family; Visit Provider Psychiatry & Neurology Psychiatry
DX: F45.1 Undifferentiated somatoform disorder (principal); F41.1 Generalized anxiety disorder; F33.41 Major depressive disorder, recurrent, in partial remission
CPT/HCPCS: 90853

== ENCOUNTER 2021-09-23 09:00 | Outpatient (RCR) | payer MEDICARE, SELFPAY ==
--- NOTE | 2021-09-24 14:00 | BH.SGPN.GN ---
Behaviors/Verbalizations/Mental Status: []Client alert and oriented, casually dressed and groomed. Eye contact good. Motor activity appropriate. Speech within normal limits. Affect constricted, mood anxious. Thoughts linear, logical, no signs of hallucinations or delusions. Client Response/Progress/Benefit: []Client responded well to session, checked in using GAPS. Client?s emotion today is ?tight or on edge? as client recently had a doctor?s appointment. Client reports medical appointments and health issues still trigger anxiety, but client shared ?I just go through the skills and it works.? Client shared he often tells himself ?thoughts are thoughts not facts? and this helps client not catastrophize. Client reports ongoing stressors of not going to [place] and missing his first over the holidays. Receptive of discussion on self-talk and its influence in maintaining long-term mental health stability. Contributed to strategies for improving effective creation and application of believable personal affirmations. Client?s affirmational statement was ?I account for my weakness, but bet on my strengths.? Client to continue aftercare group to promote gains and further increase application of healthy coping skills. Narrative Note: []
--- NOTE | 2021-10-01 14:00 | BH.SGPN.GN ---
Behaviors/Verbalizations/Mental Status: []Client alert and oriented, casually dressed and groomed. Eye contact good. Motor activity appropriate. Speech within normal limits. Affect congruent, mood euthymic and anxious. Thoughts linear, logical, no signs of hallucinations or delusions. Client Response/Progress/Benefit: [] Pt responded well to session, engaged and remaining attentive and willing to participate in discussion throughout. Reports feeling ?happy? today as he has continued to do well to manage his anxiety, communicate with supports, and challenge negative thinking patterns. Reports this has helped to ease anxieties about an upcoming ENT appointment to address ongoing issues with vertigo. Discussed in the past he would have been much more anxious about this. Pt reports connecting with the topic of routine and structure and it?s importance in ongoing mental health maintenance. Pt engaged in brainstorming of various daily routine ideas. Pt completed task of identifying current routine practices as well as important tasks to begin more regularly implementing into a structured daily routine. Shared plans to begin more consistently check-in with his about their plans and needs for the day. Pt seemed to benefit from support from peers and learning about benefits of routine. Pt to continue aftercare group to promote ongoing use of healthy coping, continue to promote anxiety management, and prevent decompensation. Narrative Note: []
--- NOTE | 2021-10-08 14:00 | BH.SGPN.GN ---
Behaviors/Verbalizations/Mental Status: []Client alert and oriented, casual in appearance. Eye contact good. Motor activity appropriate. Speech within normal limits. Affect congruent. Mood euthymic. Thoughts linear, logical, no signs of hallucinations or delusions Client Response/Progress/Benefit: []Pt responded well to session AEB providing input throughout and listening attentively to others. Pt stated despite having three consecutive nights of night terrors he is doing well with managing his anxiety. Pt reported he isn't worrying all day about having a night terror when he goes to sleep. Pt identified additional positive as been able to go to stores by using skills to manage his anxious symptoms. Additional positive as spending time with his step-daughter. Identified current stressor as coming to terms with the idea he might need medications for the rest of his life. Pt connected with self-reflection discussion. Worked with group to identify the benefits of self-reflection. Seemed to benefit from identifying how to incorporate self-reflection into life more often. Agreeable to complete homework of reflecting on progress in aftercare. Pt to continue aftercare to maintain gains and prevent decompensation.
--- NOTE | 2021-10-15 09:22 | BH.TPR ---
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 Pt consistently attends and is often early for group sessions. He does well to actively contribute during group discussions and goes above and beyond to complete all assigned homework, often typing out his responses. Pt progress also indicated in his reduction in DSM-5 scores and self-report that he is consistently applying skills learned outside treatment environment, reaching out to supports, and challenging anxious thoughts. Status of Current Problems and Symptoms: Pt continues to experience mild symptoms of anxiety per his DSM-5, though has seen significant improvements in overall ability to manage these symptoms compared with IOP discharge and last treatment review scores. Pt no longer reports symptoms of depression, indicating a 100% reduction since time of last review. Client's anxiety scores have reduced by 71%, which is also a significant improvement compared with last review. Overall, Client?s symptoms have seen a 79% symptom reduction. Client recently has reported increased vertigo which may present a barrier in managing his somatic disorder, however he reports doing well to manage these symptoms and challenge associated anxious thought patters as a result. Pt is continuing to make progress in engaging in healthy activities he enjoys and reports actively working with his to set small daily goals. Problem #1 Problem Name:: Pt will maintain or see a reduction in mental health symptoms Status of Goals:: obj 1 - complete with ongoing work encouraged. Per pt's DSM 5 scores for anxiety have reduced by 71% and depression scores have decreased by 100% since discharge from IOP. Per DSM 5 scores at review his overall symptoms have decreased by 79%. Encouraged to continue to focus on management and reduction of distortions reinforcing anxiety. obj 2 - complete with ongoing work encouraged. Client has been consistently reporting use of thought challenging, reaching out to supports in healthy and less reassurance seeking manners, as well as reminding himself to use his calming skills when experiencing triggers for increased stress and anxiety. Continues to struggle at times with racing and intrusive thoughts, but is consistently working to improve in these areas. Team Recommendations:: Pt continue IOP aftercare group in addition to attending regular outpatient counseling in order to continue to reduce anxious symptoms, maintain gains, as well as promote further skill application.
--- NOTE | 2021-10-15 14:00 | BH.SGPN.GN ---
Behaviors/Verbalizations/Mental Status: []Client alert and oriented, casually dressed. Eye contact good. Motor activity appropriate. Speech within normal limits. Affect congruent, mood euthymic and anxious. Thoughts linear, logical, no signs of hallucinations or delusions. Client Response/Progress/Benefit: []Pt responded well to session AEB providing input during discussion and listening attentively to peers. Pt reported mental health positives as scheduling an initial appointment with his new psychiatrist, as well as getting a new t.v. which he has been putting off. Shared he is doing better to manage in the moment anxieties through continued skill application via deep breathing and breaking things into small steps. Shared this has contributed to continued improvements in overall mood. Pt engaged in discussion about self-love and worked with group to identify strategies to increase self-love. Pt reported he wants to work on self-love by working on identifying personal areas of self-gratitude each day. Pt seemed to benefit from reviewing treatment progress and stressors as well as learning about how to increase self-love. Pt to continue aftercare program to maintain treatment progress, continue use of healthy coping, and prevent decompensation. Narrative Note: []
== END 2021-10-19 23:59 ==
LOC: BHOG 09:00
PROVIDERS: PCP Nurse Practitioner Family; Visit Provider Psychiatry & Neurology Psychiatry
DX: F45.1 Undifferentiated somatoform disorder (principal); F33.41 Major depressive disorder, recurrent, in partial remission; F41.8 Other specified anxiety disorders
CPT/HCPCS: 90853

== ENCOUNTER 2021-10-20 07:40 | Outpatient (RCR) | payer MEDICARE, SELFPAY ==
--- NOTE | 2021-10-29 11:33 | BH.DS ---
Discharge Summary - Demographics Date of Admission:: 07/30/21 Discharge Date: 10/29/21 Presenting Problems at Admission:: Pt discharged from IOP tx and transitioned to IOP aftercare to maintain gains client made in IOP and to reinforce healthy coping skills. At admission to IOP aftercare, client reported experiencing mild-moderate symptoms of anxiety and depression. Client was doing better with recognizing intrusive thoughts and was able to utilize coping skills, but he continued to struggle at times. Client was also experiencing life stressors including determining if he and his would go to [place] for the winter and the ongoing COVID pandemic. 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 Client will transition to traditional outpatient counseling. - Treatment Progress During Treatment & Response: Pt was engaged in IOP aftercare as evidenced by pt?s participation in group discussions and self-report of consistently applying coping skills. Pt?s DSM-5 scores decreased by an additional 79% since IOP discharge. Pt?s anxiety decreased by an additional 57% and depression decreased by an additional 67%. At discharge from IOP aftercare, pt had been consistently reporting improved mood stability and ability to cope with health anxiety. At discharge from IOP aftercare, client self-reported that he was consistently using thought challenging, reaching out to supports in healthy and less reassurance seeking manners, as well as reminding himself to use his calming skills when experiencing triggers for increased stress and anxiety. Issues Still to be Addressed:: Pt can benefit from ongoing counseling to reinforce healthy coping skills, check-in and process stressors, and promote gains made in IOP. Pt can also benefit from continuing to practice self-care and communicating with his supports. Discharge Recommendations/Instructions:: Pt will continue to see Kate Vidal for individual therapy and Dr. Thompson for medication management. Discharge Handout: Complete Discharge Handout with client on aftercare options and continuity of care.
--- NOTE | 2021-10-29 14:00 | BH.SGPN.GN ---
Behaviors/Verbalizations/Mental Status: []Client alert and oriented, casually dressed and groomed. Eye contact good. Motor activity appropriate. Speech within normal limits. Affect congruent, mood euthymic. Thoughts linear, logical, no signs of hallucinations or delusions. Client Response/Progress/Benefit: []Client responded well to session, actively engaged and providing supportive feedback throughout. Client reported his emotion as ?accomplished?, as today is his last session of aftercare. Stated that he enjoyed the program. Client discussed his meeting with his new psychiatrist, which went well. Client participated in group discussion regarding skills and routines that make up mental health maintenance, and completed their own maintenance plan. Client identified his triggers as negative relationships with others, and warning sign as taking risks without thinking about the consequences. Client?s prevention plan included self care activities and coping strategies, as well as identified how they will know when to return to therapy. Appeared to benefit from identifying personal triggers and warning signs as well as skills to aid client in maintaining mental health. Client to discharge from [facility] aftercare as client has met treatment goals and will continue with outpatient counseling. Narrative Note: []
== END 2021-10-30 07:05 | disposition home or self-care (01) ==
LOC: BHOG 07:40
PROVIDERS: PCP Nurse Practitioner Family; Visit Provider Psychiatry & Neurology Psychiatry
DX: F45.1 Undifferentiated somatoform disorder (principal); F33.41 Major depressive disorder, recurrent, in partial remission; F41.8 Other specified anxiety disorders
CPT/HCPCS: 90853

== ENCOUNTER 2023-11-13 19:39 | Emergency (ER) | payer MEDICARE, SELFPAY ==
[2023-11-13 19:40] VITALS: BP 137/94; PULSE 64; RESP 15; TEMP 36.9; O2SAT 99; BMI 20.1
--- NOTE | 2023-11-13 19:59 | EKG12_ITS ---
Test Reason : Blood Pressure : / mmHG Vent. Rate : 064 BPM Atrial Rate : 064 BPM P-R Int : 184 ms QRS Dur : 090 ms QT Int : 414 ms P-R-T Axes : 074 -14 052 degrees QTc Int : 427 ms Normal sinus rhythm Normal ECG Confirmed by DOMINGUEZ ORO, HUGH ([id number]), editor managing director LEONIDAS BAILEY ([id number]) on 11/21/2023 9:44:15 AM Referred By: Confirmed By:FEMI MIX MD
--- NOTE | 2023-11-13 20:02 | EX.ED.DYSGE1 ---
HPI <JOSEPH Vitale - Last Filed: 11/13/23 21:06> History of Present Illness Chief Complaint: Dizziness Narrative Narrative: 73-year-old male with PMH of psychiatric conditions presents with dizziness. He states at 1:30 PM he was eating pizza when he felt a burning discomfort in his left posterior neck and associated spinning/movement sensation. He has had this issue with both symptoms together almost daily for 4 years but today's episode felt worse to the point he didn't feel like he could drive in. He was told by ENT it's peripheral vertigo. He has no weakness or paresthesias. He took his dogs for 2 walks today in [place] and had no balance difficulty. He has no chest pain or shortness of breath. No headache, visual or speech changes, fever chills or URI symptoms. He states tonight he had a panic attack and has not had one in a long time. He is stressed because his is currently admitted to the hospital. PFS <JOSEPH Vitale - Last Filed: 11/13/23 21:06> [facility] Medical History (Updated 11/13/23 @ 21:02 by JOSEPH Vitale) Addiction Camas disease Agitation Anxiety disorder, unspecified Emotional problems Generalized anxiety disorder H/O: pituitary tumor History of psychosis Hyperacusis Hypertension Hypothyroid Kidney stones Major depressive disorder in partial remission Pituitary abnormality Somatic symptom disorder, severe Vertigo Home Medications hydrocortisone 5 mg tablet 1.5 mg PO DAILY 04/27/21 [History Last Taken Unknown] levothyroxine 50 mcg capsule 50 mcg PO DAILY 04/27/21 [History Last Taken Unknown] benztropine 0.5 mg tablet 0.5 mg PO BID 90 days #180 tabs 08/09/23 [Rx Last Taken Unknown] hydroxyzine pamoate 25 mg capsule (Vistaril) 25 mg PO BID PRN Anxiety 90 days #180 caps 08/09/23 [Rx Last Taken Unknown] mirtazapine 15 mg tablet (Remeron) 7.5 mg (1/2 x 15 mg) PO QHS 90 days #45 tabs 08/09/23 [Rx Last Taken Unknown] quetiapine 100 mg tablet (Seroquel) 100 mg PO QHS #90 tabs 08/09/23 [Rx Last Taken Unknown] quetiapine 25 mg tablet (Seroquel) 25 mg PO QHS 90 days #90 tabs 08/09/23 [Rx Last Taken Unknown] meclizine 25 mg tablet 25 mg PO 4X/DAY PRN PRN Dizziness 5 days #20 tabs 11/13/23 [Rx Last Taken Unknown] Allergy/AdvReac Type Severity Reaction Status Date / Time citalopram [From Celexa] Allergy Mild Other Verified 11/13/23 19:40 diphenhydramine Allergy Other Verified 11/13/23 19:40 [From Benadryl] Family History Other CVA (cerebral vascular accident) Depression Social History Smoking Status: Never smoker ROS <JOSEPH Vitale - Last Filed: 11/13/23 21:06> ROS ED ROS Narrative Constitutional: Negative for fever, chills, malaise. Eyes: Negative for visual change. CVS: Negative for palpitations, chest pain, syncope. Respiratory: Negative for shortness of breath, cough. GI: Negative for abdominal pain, nausea, vomiting, melena, hematochezia. Neuro: Negative for headache, motor/sensory dysfunction. EXAM <JOSEPH Vitale - Last Filed: 11/13/23 21:06> Physical Exam Narrative Exam Narrative: CONST: Patient sitting in no acute distress. EYES: Normal inspection. PERRL, EOMI, no nystagmus. ENT: Normal inspection, moist mucous membranes. NECK: Normal inspection. No meningismus, no tenderness. RESP: No respiratory distress, CTAB. CVS: Regular rate and rhythm, no murmur, no gallop. ABD: Soft and nontender, no guarding or rebound, nondistended. SKIN: Color normal, no rash, warm, dry, intact. EXTREMITIES: Normal appearance, no pedal edema. NEURO: Oriented x4. Face symmetric, no drift, normal finger-nose and heel mills. No aphasia or dysarthria. PSYCH: Normal affect. Const Vital Signs: 11/13/23 19:40 11/13/23 19:52 Temperature 98.5 F Temperature Source Temporal Pulse Rate 64 Respiratory Rate 15 Respiratory Effort Normal Respiratory Pattern Normal Blood Pressure 137/94 H Blood Pressure Mean 108 Pulse Ox 99 <Dr. Geraldo Murry MD - Last Filed: 11/13/23 21:04> Physical Exam Const Vital Signs: 11/13/23 19:40 11/13/23 19:52 Temperature 98.5 F Temperature Source Temporal Pulse Rate 64 Respiratory Rate 15 Respiratory Effort Normal Respiratory Pattern Normal Blood Pressure 137/94 H Blood Pressure Mean 108 Pulse Ox 99 MDM <JOSEPH Vitale - Last Filed: 11/13/23 21:06> [facility] Narrative Medical decision making narrative: Patient has a room spinning sensation associated with left posterior neck discomfort. This is an ongoing issue over the last 4 years but seemed worse today. He has no headache or other neurological symptoms. He is awake and alert with normal vital signs. He is neurologically intact with NIH of 0. He has no reproducible tenderness of his neck but it does hurt with cervical range of motion consistent with musculoskeletal pain. There is no signs of meningitis. Due to his age screening labs were obtained. Normal white count of 5.6, mild anemia 11.8, BMP unremarkable. EKG is sinus rhythm no ischemic changes and troponin is 6. Since he has had similar symptoms over the last 4 years and was told by ENT it is peripheral vertigo I do not think he requires a stroke workup. He feels improvement after meclizine and tramadol for his musculoskeletal neck pain. I prescribed meclizine at home and instructed he should not take it if he is taking both benztropine and his hydroxyzine prn in the same day. He was discharged in stable condition. Lab Data Attestation: I reviewed the patient's lab results. Labs: Laboratory Results - last 24 hr 11/13/23 19:33 WBC 5.6 RBC 3.82 L Hgb 11.8 L Hct 35.1 L MCV 91.9 MCH 30.9 MCHC 33.6 RDW Std Deviation 42.3 RDW Coeff of Chris 12.6 Plt Count 199 MPV 9.7 Immature Gran % (Auto) 0.200 Neut % (Auto) 51.7 Lymph % (Auto) 40.1 [place] % (Auto) 5.9 Eos % (Auto) 1.2 Baso % (Auto) 0.9 Absolute Neuts (auto) 2.9 Absolute Lymphs (auto) 2.26 Nucleated RBC % 0 Sodium 139 Potassium 4.1 Chloride 107 Carbon Dioxide 30.0 Anion Gap 2 L BUN 27 H Creatinine 0.99 Estim Creat Clear Calc 64.84 Est GFR (MDRD) Af Amer 95 Est GFR (MDRD) Non-Af 78 BUN/Creatinine Ratio 27.3 H Glucose 98 Calcium 9.5 Troponin I High Sens 6 EKG Initial EKG: Attestation: I personally reviewed and interpreted this EKG as follows: Interpretation: Sinus Rhythm and No Acute Injury Pattern Comments: Normal sinus rhythm at 64 bpm Normal intervals, no acute ischemic changes <Dr. Geraldo Murry MD - Last Filed: 11/13/23 21:04> [facility] Lab Data Labs: Laboratory Results - last 24 hr 11/13/23 19:33 WBC 5.6 RBC 3.82 L Hgb 11.8 L Hct 35.1 L MCV 91.9 MCH 30.9 MCHC 33.6 RDW Std Deviation 42.3 RDW Coeff of Chris 12.6 Plt Count 199 MPV 9.7 Immature Gran % (Auto) 0.200 Neut % (Auto) 51.7 Lymph % (Auto) 40.1 [place] % (Auto) 5.9 Eos % (Auto) 1.2 Baso % (Auto) 0.9 Absolute Neuts (auto) 2.9 Absolute Lymphs (auto) 2.26 Nucleated RBC % 0 Sodium 139 Potassium 4.1 Chloride 107 Carbon Dioxide 30.0 Anion Gap 2 L BUN 27 H Creatinine 0.99 Estim Creat Clear Calc 64.84 Est GFR (MDRD) Af Amer 95 Est GFR (MDRD) Non-Af 78 BUN/Creatinine Ratio 27.3 H Glucose 98 Calcium 9.5 Troponin I High Sens 6 Treatment and Re-Evaluation Comments:: I have personally performed a face to face assessment of the patient and have reviewed the TARA Note. I performed a substantive portion of the visit including all aspects of the following. My arriaga findings include: History is longstanding intermittent history of same symptoms, more severe today, which include pain in the left side of the neck that hurts more with moving ipsilaterally and better with remaining still, and dizziness that feels like a sensation of movement without lightheadedness/presyncope or yaneli spinning. No nausea or vomiting. No focal peripheral neurologic symptoms or trouble speaking. No loss of consciousness. No headache. No tinnitus. Exam is normal neurologic exam including normal [id number] and [id number]. Normal TMs bilaterally. No pathologic nystagmus. Normal speech. Medical Decison Making Labs and blood pressure monitored, and reviewed. His blood pressures in the 130s. He states the reason he came to the ER today was because he felt like mainly the sensation of movement was to the point where he felt unsafe driving. He states every time he has this the left posterior neck pain seems to occur with it although he understands that they are likely 2 different processes. He does not have any lateral neck pain to suggest a vascular process here and he has a normal neurologic exam. Supportive care along with meclizine which we are prescribing for him and advised to follow-up. Objectively ambulatory without any ataxia here in the emergency department and comfortable going home. We discussed the risks of driving when the symptoms occur. Other additions or changes: [None] Discharge Plan Triage Chief Complaint: Dizziness ED Midlevel Provider: Lizette Hurley ED Provider: Geraldo Murry Dx/Rx/DC Orders Clinical Impression: Episodic peripheral vertigo, Neck pain, musculoskeletal Instructions: ED BPV Vertigo Prescriptions: New meclizine 25 mg tablet 25 mg PO 4X/DAY PRN PRN (Reason: Dizziness) 5 Days Qty: 20 0RF No Action quetiapine [Seroquel] 100 mg tablet 100 mg PO QHS Qty: 90 1RF quetiapine [Seroquel] 25 mg tablet 25 mg PO QHS 90 Days Qty: 90 1RF Rx Instructions: Take one 100 mg Seroquel po q hs with one 25 mg Seroquel for total of 125 mg. mirtazapine [Remeron] 15 mg tablet 7.5 mg PO QHS 90 Days Qty: 45 1RF hydroxyzine pamoate [Vistaril] 25 mg capsule 25 mg PO BID PRN (Reason: Anxiety) 90 Days Qty: 180 1RF benztropine 0.5 mg tablet 0.5 mg PO BID 90 Days Qty: 180 1RF hydrocortisone 5 mg Tablet 1.5 mg PO DAILY levothyroxine 50 mcg Capsule 50 mcg PO DAILY Primary Care Provider: Eyal Grove NP Referrals: yEal Grove CHILD CENTER ASSISTANT, CHILD CENTER ASSISTANT-C [Primary Care Provider] - Activity Restrictions/Additional Instructions: Meclizine is a medicine you can take as needed for the dizziness. If you are taking benztropine and hydroxyzine do not take meclizine in the same day. Disposition Disposition: Home, Self Care
--- OUTSIDE RECORDS SUMMARY | 2023-11-13 20:03 | XMS RPT_ITS | CCD ---
Author Name Unknown Address [address] [place] [address] Organization [facility] Care Team Providers Care Front Worker Name Role Phone Kelly MCCALL, Suzanne Pradhan Unavailable Florecita Mendoza RN, Suzanne Bernabe Unavailable RUBIA Arrieta CNP, CORNELIO Castillo Primary Care [facility] ALEX ORO, MARTIN Attending Jaya CORNELIO Santana CNP Primary Care Jaya fili JOHNSON MD, MARTIN Attending Unavaila ble CORNELIO BARKLEY CNP Primary Care Jaya ble Allergies Allergy Classification Reported Allergen(s) Allergy Type Date of Onset Reaction(s) Facility (5 sources) Citalopram; Translations: [citalopram] Drug Allergy Hallucinations (finding), Insomnia (disorder), Dizziness (finding), Stomach ache (finding), Diarrhea (finding) [facility] Work Phone: Medications Current Medications Medication Drug Class(es) Dates Sig (Normalized) Sig (Original) benztropine mesylate 0.5 mg oral tablet (5 sources) Anticholinergic, Antihistamine Start: 07-02-2021 benztropine 0.5 mg oral tablet TAKE 1 TABLET BY MOUTH ONCE OR TWICE A DAY Start Date: 07/02/21 Status: Ordered hydrocortisone 5 mg oral tablet (5 sources) Corticosteroid Start: 05-09-2023 hydrocortisone 5 mg oral tablet Dose : 7.5 mg = 1.5 tab(s), Oral, qDay, # 45 tab(s), 6 Refill(s), Pharmacy: [id number], 190, cm, 09/30/22 14:52:00 EST, Height, kg, 09/30/22 14:52:00 EST, Dosing Weight Start Date: 05/09/23 Status: Ordered Completed/Discontinued Medications Medication Drug Class(es) Dates Sig (Normalized) Sig (Original) aspirin 81 mg oral strip (4 sources) Nonsteroidal Anti-inflammatory Drug Start: 12-12-2015 End: 12-22-2015 take 1 tablet by mouth once daily ASPIRIN 81 MG TABS One tablet by mouth daily ASPIRIN [id number] Suzanne Mendoza RN clonazePAM 0.5 mg oral tablet (2 sources) Benzodiazepine Start: 12-22-2015 CLONAZEPAM 0.5 MG TABS as needed CLONAZEPAM [id number] Renan Juarez MD escitalopram 5 mg oral tablet (2 sources) Serotonin Reuptake Inhibitor Start: 12-22-2015 take 1 tablet by mouth once daily LEXAPRO 5 MG TABS One tablet by mouth daily ESCITALOPRAM OXALATE [id number] Renan Juarez MD METOPROLOL SUCCINATE (6 sources) beta-Adrenergic Vicky Start: 12-23-2015 take 1 tablet by mouth once daily TOPROL XL 25 MG [id number] One tablet by mouth daily METOPROLOL SUCCINATE [id number] Renan Juarez MD Problems Active Problems Problem Classification Problem Date Documented Date Episodic/Chronic Anxiety disorders (5 sources) Generalized anxiety disorder 06-18-2021 Chronic Calculus of urinary tract (5 sources) History of calculus of kidney 02-04-2017 Episodic Cardiac dysrhythmias (4 sources) Supraventricular tachycardia; Translations: [Ventricular premature beats] Onset: 12-12-2015 12-22-2015 Chronic Conditions associated with dizziness or vertigo (5 sources) Vertigo 06-26-2020 Episodic Diabetes mellitus without complication (5 sources) Prediabetes 02-12-2020 Episodic Essential hypertension (5 sources) Hypertensive disorder 01-05-2021 Chronic Headache; including migraine (1 source) Headache; Translations: [Headache, unspecified] Onset: 07-02-2021 Episodic Malaise and fatigue (5 sources) Fatigue 03-26-2021 Episodic Mood disorders (5 sources) Major depression in remission 11-07-2020 Chronic Nutritional deficiencies (5 sources) Vitamin D deficiency 04-03-2021 Chronic Other and unspecified benign neoplasm (5 sources) Pituitary macroadenoma 02-12-2020 Episodic Other ear and sense organ disorders (5 sources) Hyperacusis 02-09-2021 Episodic Other ear and sense organ disorders (5 sources) Presbycusis 11-07-2020 Episodic Other screening for suspected conditions (not mental disorders or infectious disease) (5 sources) Liver function tests abnormal 02-12-2020 Episodic Residual codes; unclassified (5 sources) Increased body mass index 01-05-2021 Episodic Spondylosis; intervertebral disc disorders; other back problems (5 sources) Degeneration of lumbar intervertebral disc 11-07-2020 Chronic Spondylosis; intervertebral disc disorders; other back problems (5 sources) Cervico-occipital neuralgia 11-07-2020 Episodic Thyroid disorders (5 sources) Hypothyroidism 02-12-2020 Chronic Unclassified (10 sources) Patient encounter status 01-05-2021 Unclassified (4 sources) Vaccination needed 07-07-2021 Past or Other Problems Problem Classification Problem Date Documented Da te Episodic/Chronic Cardiac dysrhythmias (2 sources) Palpitations; Translations: [Palpitations] Onset: 12-12-2015 12-12-2015 Episodic Other circulatory disease (2 sources) Orthostatic hypotension; Translations: [Orthostatic hypotension] Onset: 03-30-2017 03-30-2017 Episodic Other lower respiratory disease (2 sources) Dyspnea; Translations: [Shortness of breath] Onset: 12-22-2015 12-22-2015 Episodic Syncope (2 sources) Syncope and collapse; Translations: [Syncope and collapse] Onset: 03-30-2017 03-30-2017 Episodic Results Test Name Value Interpretation Reference Range Facil ity Vital Signs Date Time Vital Sign Value Performing Clinician Faci lity 06-07-2023 13:36-0400 Body height 190.[address] NICHOL STEVENSON MD [facility] 06-07-2023 13:36-0400 Body temperature 98.24 [degF] DR NICHOL STEVENSON MD [facility] 06-07-2023 13:36-0400 Body weight 72.[address] NICHOL STEVENSON MD [facility] 06-07-2023 13:36-0400 Heart rate 65 /min DR NICHOL STEVENSON MD [facility] 06-07-2023 13:36-0400 Respiratory rate 20 /min DR NICHOL STEVENSON MD [facility] 07-02-2021 08:47-0400 Body temperature 98.6 [degF] DR NICOLÁS WARE MD [facility] 07-02-2021 08:47-0400 Diastolic blood pressure 77 mm[Hg] DR NICOLÁS WARE MD [facility] 07-02-2021 08:47-0400 Heart rate 64 /min DR NICOLÁS WARE MD [facility] 07-02-2021 08:47-0400 Mean blood pressure 91 mm[Hg] DR NICOLÁS WAER MD [facility] 07-02-2021 08:47-0400 Respiratory rate 18 /min DR NICOLÁS WARE MD [facility] 07-02-2021 08:47-0400 Systolic blood pressure 118 mm[Hg] DR NICOLÁS AWRE MD [facility] 03-23-2016 09:45-0400 BMI (Body Mass Index) 26.45 kg/m2 [facility] Work Phone: 03-23-2016 09:45-0400 BP Diastolic 40 mm[Hg] [facility] Work Phone: 03-23-2016 09:45-0400 BP Diastolic 60 mm[Hg] Suzanne Mendoza RN [facility] Work Phone: 03-23-2016 09:45-0400 BP Systolic 92 mm[Hg] Suzanne Mendoza RN [facility] Work Phone: 03-23-2016 09:45-0400 BP Systolic 102 mm[Hg] Suzanne Mendoza RN [facility] Work Phone: 03-23-2016 09:45-0400 BSA (Body Surface Area) 2.2 m2 Suzanne Mendoza RN [facility] Work Phone: 03-23-2016 09:45-0400 Height 187.96 cm Suzanne Mendoza RN [facility] Work Phone: 03-23-2016 09:45-0400 Pulse (Heart Rate) 50 /min Suzanne Mendoza RN [facility] Work Phone: 03-23-2016 09:45-0400 Respiratory Rate 16 /min Suzanne Mendoza RN [facility] Work Phone: 03-23-2016 09:45-0400 Weight 93.44 kg Suzanne Mendoza RN [facility] Work Phone: Encounters Encounter Date Encounter Type Care Provider Facility Start: 06-07-2023 End: 06-07-2023 Emergency department patient visit DR NICHOL STEVENSON MD [facility] Start: 10-04-2022 End: 10-05-2022 ambulatory MARTIN JOHNSON MD Facility:B Start: 10-04-2022 End: 10-04-2022 Patient encounter procedure MARTIN JOHNSON MD [facility] Start: 03-18-2022 End: 03-19-2022 ambulatory MARTIN JOHNSON MD Facility:[facility] Start: 03-18-2022 End: 03-18-2022 Patient encounter procedure MARTIN JOHNSON MD [facility] Start: 09-15-2021 End: 09-15-2021 Patient encounter procedure MARTIN JOHNSON MD [facility] Start: 07-02-2021 End: 07-02-2021 Emergency department patient visit DR NICOLÁS WARE MD [facility] Procedures Date Procedure Procedure Detail Performing Clinician Start: 03-23-2016 End: 03-28-2017 VERONIKA Juarez MD Work Phone: Start: 03-23-2016 End: 03-28-2017 Follow Up Appt 1 year [facility] Work Phone: Start: 12-22-2015 End: 03-28-2017 *Hepatic Function Panel Renan Juarez MD Work Phone: Start: 12-22-2015 End: 03-05-2016 DJN Renan Juarez MD Work Phone: Start: 12-22-2015 End: 12-31-2015 Echocardiography Renan Juarez MD Work Phone: Start: 12-22-2015 End: 03-05-2016 Follow Up Appt 3 months Renan Juarez MD Work Phone: Start: 12-22-2015 End: 03-09-2016 Lipid panel [AGGREGATE] Renan Juarez MD Work Phone: Start: 12-22-2015 End: 12-31-2015 Stress Echocardiogram (treadmill) Renan Juarez MD Work Phone: H/O: surgery S/P transsphenoi ramiro hypophysectomy( Confirmed ) DR NICOLÁS WARE MD Plan of Treatment Date Care Activity Detail Author Start: 04-04-2017 End: 04-04-2017 Appointment Appointment [facility] Work Phone: Start: 03-09-2017 End: 03-11-2016 *Hepatic Function Panel *Hepatic Function Panel [facility] Work Phone: Start: 03-09-2017 End: 03-11-2016 Lipid panel [AGGREGATE] *Lipid Profile CC PCP [facility] Work Phone: Start: 03-23-2016 End: 03-28-2017 VERONIKA BANDA [facility] Work Phone: Start: 03-23-2016 End: 03-28-2017 Follow Up Appt 1 year Follow Up Appt 1 year [facility] Work Phone: Start: 12-22-2015 End: 03-28-2017 *Hepatic Function Panel *Hepatic Function Panel [facility] Work Phone: Start: 12-22-2015 End: 03-05-2016 VERONIKA BANDA [facility] Work Phone: Start: 12-22-2015 End: 12-22-2015 Echocardiography Echocardiogram (complete) [facility] Work Phone: Start: 12-22-2015 End: 03-05-2016 Follow Up Appt 3 months Follow Up Appt 3 months [facility] Work Phone: Start: 12-22-2015 End: 03-09-2016 Lipid panel [AGGREGATE] *Lipid Profile CC PCP [facility] Work Phone: Start: 12-22-2015 End: 12-23-2015 Stress Echocardiogram (treadmill) Stress Echocardiogram (treadmill) [facility] Work Phone: Patient Education CARDIAC%20STRE SS%20TEST, PALPITATIONS [facility] Work Phone: Immunizations Immunization Date Immunization Notes Care Provider [facility] 06-07-2023 tetanus toxoid, reduced diphtheria toxoid, and acellular pertussis vaccine, adsorbed DR NICHOL STEVENSON MD [facility] 07-07-2021 influenza, high dose seasonal, preservative-free; Translations: [Fluad Quadrivalent PF ] MARTIN JOHNSON MD [facility] 12-15-2020 SARS-CoV-2 (COVID-19 ) mRNA-[id number] NICOLÁS WARE MD [facility] 11-17-2020 SARS-CoV-2 (COVID-19 ) mRNA-[id number] NICOLÁS WARE MD [facility] Payers Date Payer Category Payer Unknown [id number] 1950 Unknown [id number] 1950 Unknown [id number] Social History Date Type Detail Facility Start: 02-12-2020 Never smoked t obacco (finding) [facility] Sex Assigned At Male [facility] Functional Status Date Assessment Result Facility 06-07-2023 Functional Status Standard Safet y ID band on, Call device within reach, Bed in low position, Wheels locked, Upper/Half-Length side-rails up, Safety level maintained, Non-Slip footwear [facility] Mental Status Date Assessment Result Facility 06-07-2023 Mental Status Orientation Oriented x 4 [facility] Clinical Notes 07-02-2021 to 06-07-2023 LaboratoryLaboratoryRadiologyLaboratoryRadiologyLaboratoryRadiologyLaboratory Note Date & Type Note Facility 06-07-2023 Hospital Discharge instructions Patient Education 06/07/2023 15:05:34 Laceration, Hand: All Closures Hand Laceration: All Closures A laceration is a cut through the skin. Deep cuts usually require stitches. Minor cuts may be closed with surgical tape or skin adhesive. X-rays may be done if something may have entered the skin through the cut, such as broken glass. You may also be given a tetanus shot if you are not up to date on this vaccination and the object that cut you may carry tetanus. Home care Your healthcare provider may prescribe an antibiotic. This is to help prevent infection. Follow all instructions for taking this medicine. Take the medicine every day until it is gone or you are told to stop. You should not have any left over. The healthcare provider may prescribe medicines for pain. Follow instructions for taking them. Follow the healthcare provider s instructions on how to care for the cut. Keep the wound clean and dry. Don't get the wound wet until you are told it is OK to do so. If the bandage gets wet, remove it. Gently pat the wound dry with a clean cloth. Then put on a clean, dry bandage. To help prevent infection, wash your hands with soap and water before and after caring for the wound. Caring for stiches: Once you no longer need to keep the stitches dry, clean the wound daily. First, remove the bandage. Then wash the area gently with soap and warm water, or as directed by the healthcare provider. Use a wet cotton swab to loosen and remove any blood or crust that forms. After cleaning, apply a thin layer of antibiotic ointment if advised. Then put on a new bandage unless you are told not to. Caring for skin glue: Don t put apply liquid, ointment, or cream on the wound while the glue is in place. Avoid activities that cause heavy sweating. Protect the wound from sunlight. Don't scratch, rub, or pick at the adhesive film. Don't place tape directly over the film. The glue should peel off within 5 to 10 days. Caring for surgical tape: Keep the area dry. If it gets wet, blot it dry with a clean towel. Surgical tape usually falls off within 7 to 10 days. If it has not fallen off after 10 days, you can take it off yourself. Put mineral oil or petroleum jelly on a cotton ball and gently rub the tape until it is removed. Once you can get the wound wet, you may shower as usual, but don't soak the wound in water. This means no tub baths or swimming. Even with proper treatment, a wound infection may sometimes occur. Check the wound daily for signs of infection listed below. Follow-up care Follow up with your healthcare provider, or as advised. If you have stitches, be sure to return as directed to have them removed. When to seek medical advice Call your healthcare provider right away if any of these occur: Wound bleeding not controlled by direct pressure Signs of infection, including increasing pain in the wound, increasing wound redness or swelling, or pus or bad odor coming from the wound Fever of 100.4 F (38. C) o higher, or as directed by your healthcare provider Stitches come apart or fall out or surgical tape falls off before 7 days Wound edges reopen Wound changes colors Numbness or weakness in the affected hand Decreased movement of the hand [phone] [employer]. [address] [place] [address]. All rights reserved. This information is not intended as a substitute for professional medical care. Always follow your healthcare professional's instructions. Follow Up Care 06/07/2023 13:29:53 With:Bessie betancourt [phone] Address:Unknown When:2-4 days With:CORNELIO BARKLEY Address: [address] [place] [address] [facility] (1) When:2-4 days [facility] 06-07-2023 Emergency department Discharge summary Discharge Instructions Thank you for allowing [facility] to assist you with your healthcare needs. The following is important discharge information regarding your hospital visit. Diagnosis from Today's Visit Finger laceration What to Do Next Instructions from Your Care Team Have sutures removed in 5 to 7 days by either your family physician or a follow-up appointment with [facility] No qualifying data available. Post Acute Orders No qualifying data available. You Need to Schedule the Following Appointments Follow Up with [facility] [phone] When Within 2-4 days Follow Up with CORNELIO BARKLEY When Within 2-4 days Where: [address] [place] [address] Business (1) Allergies CeleXA (Hallucinations, Insomnia, Dizziness, Stomach upset, Diarrhea) Immunizations This Visit Given Vaccine Datetetanus/diphth/pertuss (Tdap) adult/adol 06/07/2023 Medications Please ask your primary doctor or pharmacist before taking any other medication not listed, including over the counter drugs, herbal medications, vitamins and or supplements as they may interact with your home medications. What How Much When Instructions Last Dose Unchanged benztropine (benztropine 0.5 mg oral tablet) TAKE 1 TABLET BY MOUTH ONCE OR TWICE A DAY Unchanged hydrocortisone (hydrocortisone 5 mg oral tablet) 1.5 tab(s) by mouth Once a day Unchanged hydrOXYzine (hydrOXYzine pamoate 25 mg oral capsule) TAKE 1 CAPSULE TWICE DAILY Unchanged levothyroxine (levothyroxine 50 mcg (0.05 mg) oral tablet) 1 tab(s) by mouth Once a day TAKE 1 TABLET BY MOUTH DAILY Unchanged mirtazapine (mirtazapine 7.5 mg oral tablet) TAKE 1 TABLET EVERY DAY AT BEDTIME Unchanged QUEtiapine (QUEtiapine 100 mg oral tablet) TAKE 1 TABLET DAILY AT BEDTIME Unchanged QUEtiapine (QUEtiapine 25 mg oral tablet) Take 1 tablet daily along with a 100mg tablet to equal 125mg Please take this list to your next doctor s visit. Bring all medications you take, including over the counter medications, herbals and other supplements with you to your doctor s visit. Patients and families are reminded to discard old lists and to update any records with all medication providers or retail pharmacies. Education Materials Hand Laceration: All Closures A laceration is a cut through the skin. Deep cuts usually require stitches. Minor cuts may be closed with surgical tape or skin adhesive. X-rays may be done if something may have entered the skin through the cut, such as broken glass. You may also be given a tetanus shot if you are not up to date on this vaccination and the object that cut you may carry tetanus. Home care Your healthcare provider may prescribe an antibiotic. This is to help prevent infection. Follow all instructions for taking this medicine. Take the medicine every day until it is gone or you are told to stop. You should not have any left over. The healthcare provider may prescribe medicines for pain. Follow instructions for taking them. Follow the healthcare provider s instructions on how to care for the cut. Keep the wound clean and dry. Don't get the wound wet until you are told it is OK to do so. If the bandage gets wet, remove it. Gently pat the wound dry with a clean cloth. Then put on a clean, dry bandage. To help prevent infection, wash your hands with soap and water before and after caring for the wound. Caring for stiches: Once you no longer need to keep the stitches dry, clean the wound daily. First, remove the bandage. Then wash the area gently with soap and warm water, or as directed by the healthcare provider. Use a wet cotton swab to loosen and remove any blood or crust that forms. After cleaning, apply a thin layer of antibiotic ointment if advised. Then put on a new bandage unless you are told not to. Caring for skin glue: Don t put apply liquid, ointment, or cream on the wound while the glue is in place. Avoid activities that cause heavy sweating. Protect the wound from sunlight. Don't scratch, rub, or pick at the adhesive film. Don't place tape directly over the film. The glue should peel off within 5 to 10 days. Caring for surgical tape: Keep the area dry. If it gets wet, blot it dry with a clean towel. Surgical tape usually falls off within 7 to 10 days. If it has not fallen off after 10 days, you can take it off yourself. Put mineral oil or petroleum jelly on a cotton ball and gently rub the tape until it is removed. Once you can get the wound wet, you may shower as usual, but don't soak the wound in water. This means no tub baths or swimming. Even with proper treatment, a wound infection may sometimes occur. Check the wound daily for signs of infection listed below. Follow-up care Follow up with your healthcare provider, or as advised. If you have stitches, be sure to return as directed to have them removed. When to seek medical advice Call your healthcare provider right away if any of these occur: Wound bleeding not controlled by direct pressure Signs of infection, including increasing pain in the wound, increasing wound redness or swelling, or pus or bad odor coming from the wound Fever of 100.4 F (38. C) o higher, or as directed by your healthcare provider Stitches come apart or fall out or surgical tape falls off before 7 days Wound edges reopen Wound changes colors Numbness or weakness in the affected hand Decreased movement of the hand [phone] [employer]. [address] [place] [address], [place] [address]. All rights reserved. This information is not intended as a substitute for professional medical care. Always follow your healthcare professional's instructions. Additional Information VACCINATE! IT SAVES LIVES! Members of the community who have not yet received the COVID-19 vaccine and would like to receive it can visit one of [facility] vaccine clinics. There are many vaccine clinic locations within the [facility]. For locations and available times, please visit [email or web address].[email or web address]/. It is important to note that some COVID mobile vaccine clinics are held outdoors and may be canceled in rainy or stormy conditions. To learn more about pediatric vaccinations (ages 5-11), we invite you to visit the [facility] webpage. [email or web address]/pages/2 [email or web address]-Ajbja-Xjwhmtbusgw-Frequently-[email or web address] -Questions.html To learn more about the COVID-19 vaccine, we invite you to visit the CDC website for a list of frequently asked questions. https://www.cdc.gov/coronavirus/2019-n cov/vaccines/faq.html [facility] Patient Portal Access Instructions: Stay connected with your healthcare team and access your personal medical information anytime with the [facility] Patient Portal. If you would like a full copy of your medical records please contact the [facility] Medical Records Department Tuesday through Tuesday between 8a.m. and 4:30p.m. Please follow the directions below to access the portal: 1.Access the email account you provided upon registration to the hospital.2.Look for an invitation email from [facility].3.Open the email and access the invitation link: Accept Invitation to [facility].Fill in the required metcalf to create your account. Sign into [email or web address] with your username and password that you created in the above steps to stay up to date. You can then view a summary of results, a summary of your visits, and the ability to download your summaries to your computer or send the information securely to a physician. Remember that your healthcare information is confidential, so carefully consider who you will allow to register on the [email or web address] Patient Portal for access to your information. You can also access the [email or web address] Patient Portal on the [employer] lauryn. Simply click on Health Records under Health Data and then click on the [employer] logo. HOW TO SAFELY DISPOSE OF PRESCRIPTION MEDICATIONS Please use one of the following methods to safely dispose of your unused medications. 1.Use a drug disposal kit: the drug disposal pouch allows you to safely discard your old and unused drugs. Ask your nurse to give you one when you are discharged.2.Visit a local take-back location: Many local pharmacies and police departments have programs that collect old and unwanted prescription drugs. Call your local pharmacy or go to http://Rover.com.[employer] Digital/2T5Cy3u to find one close to you.3.Make use of household items: Use cat litter or old coffee grounds to dispose medications if other options are not available. Mix your drugs with these household products, seal them in an airtight container and throw it into the garbage. Call [facility]: [phone] to be sure your drugs can be disposed of in this way. Some medicines may require a different approach.4.Never flush your medications down the toilet. IF YOU HAVE BEEN PRESCRIBED AN OPIOIDS FOR PAIN If you have been prescribed an opioid (such as hydrocodone, oxycodone or morphine), it is critical to understand the possible side effects and risks of opioid pain medications. Even when taken as directed, opioids can have several side effects including: Tolerance, meaning you might need to take more of a medication for the same pain relief. Nausea, vomiting and/or constipation. Sleepiness, dizziness, dry mouth, confusion, depression or itching. Physical dependence, meaning you have withdrawal symptoms when a medication is stopped ? this can develop within a few days. KNOW YOUR RESPONSIBILITIES It is important to know exactly how much and how often to take the opioid pain medications you are prescribed. Never take opioids in higher amounts or more often than prescribed. Do not combine opioids with alcohol or other drugs that cause drowsiness, such as benzodiazepines, also known as benzos, including diazepam and alprazolam, muscle relaxants or sleep aids. Never sell or share prescription opioids. This is illegal. Store opioids in a secure place and out of reach of others (including children, family, friends and visitors). The last page(s) of this document has been signed and retained as a CHART COPY Signatures Patient Education Materials Laceration, Hand: All Closures Medication Leaflets My discharge plan and instructions have been reviewed and explained to me and I,AKIRA MESSER understand my current condition and have read and understand these discharge instructions. I have received a written copy of the plan/instructions. If I have questions, I am aware that I should contact my doctor. Patient/Flight Test Supervisor Signature: _ Date/Time: Relationship to Patient: Witness Name/Signature: Date/Time: [facility] 06-07-2023 Note ORIGINAL EXAMINATION: THREE XRAY VIEWS OF THE LEFT HAND 06/07/2023 2:19 pm COMPARISON: None. HISTORY: ORDERING SYSTEM PROVIDED HISTORY: Reason for Exam: index finger vs table saw FINDINGS: 2nd distal digit soft tissue laceration. No acute fracture or dislocation identified. Carpal arcs and articulations are maintained. IMPRESSION: No acute bony abnormality. 2nd distal soft tissue laceration. Interpreted by: Sarath Biggs DO Preliminary Report By: Sarath Biggs DO Electronically signed By Sarath Biggs DO Dictated Date: 06/07/2023 2:21:19 PM Prelim Date: 06/07/2023 2:22:49 PM Sign Date: 06/07/2023 2:22:49 PM Ordering Provider: SHELDON SAM [facility] 09-30-2022 Evaluation + Plan note Future Scheduled TestsAdrenocorticotropic Hormone (ACTH) 09/30/22Thyroid Stimulating Hormone 03/30/23Thyroid Stimulating Hormone 09/30/22Free T4 09/30/22Free T4 03/30/23A1C Hemoglobin 09/30/22Complete Blood Count 09/30/22Cortisol Drawn in AM 09/30/22Cortisol Drawn in AM 03/30/23Free T3 09/30/22Free T3 03/30/23Vitamin D Level 09/30/22Vitamin D Level 03/30/23Complete Metabolic Panel 09/30/22Complete Metabolic Panel 03/30/23 [facility] Seda Preethi 07-02-2021 Hospital Discharge instructions Patient Education 07/02/2021 09:50:46 Headache, Unspecified Headache, Unspecified A number of things can cause headaches. The cause of your headache isn t clear. But it doesn t seem to be a sign of any serious illness. Headache affects almost everyone at some time. It is the most common reason people miss days from work or school. You could have a tension headache or a migraine headache. Stress can cause a tension headache. This can happen if you tense the muscles of your shoulders, neck, and scalp without knowing it. If this stress lasts long enough, you may develop a tension headache. It is not clear why migraines occur, but certain things called triggers can raise the risk of having a migraine attack. Migraine triggers may include emotional stress or depression, or by hormone changes during the menstrual cycle. Other triggers include control pills and other medicines, alcohol or caffeine, foods with tyramine (such as aged cheese, wine), eyestrain, weather changes, missed meals, and lack of sleep or oversleeping. Other causes of headache include: Viral illness with high fever Head injury with concussion Sinus, ear, or throat infection Dental pain and jaw joint (TMJ) pain More serious but less common causes of headache include stroke, brain hemorrhage, brain tumor, meningitis, and encephalitis. Home care Follow these tips when taking care of yourself at home: Don t drive yourself home if you were given pain medicine for your headache. Instead, have someone else drive you home. Try to sleep when you get home. You should feel much better when you wake up. Apply heat to the back of your neck to ease a neck muscle spasm. Take care of a migraine headache by putting an ice pack on your forehead or at the base of your skull. If you have nausea or vomiting, eat a light diet until your headache eases. If you have a migraine headache, use sunglasses when in the daylight or around bright indoor lighting until your symptoms get better. Bright glaring light can make this type of headache worse. Follow-up care Follow up with your healthcare provider, or as advised. Talk with your provider if you have frequent headaches. He or she can help figure out a treatment plan. By knowing the earliest signs of headache, and starting treatment right away, you may be able to stop the pain yourself. When to seek medical advice Call your healthcare provider right away if any of these occur: Your head pain suddenly gets worse after sexual intercourse or strenuous activity Your head pain doesn t get better within 24 hours You aren t able to keep liquids down (repeated vomiting) Fever of 100.4 F (38 C) or higher, or as directed by your healthcare provider Stiff neck Extreme drowsiness, confusion, or fainting Dizziness or dizziness with spinning sensation (vertigo) Weakness in an arm or leg or one side of your face You have trouble talking or seeing 2772-[address]100 [employer]. [address] [place] [address]. All rights reserved. This information is not intended as a substitute for professional medical care. Always follow your healthcare professional's instructions. Follow Up Care 07/02/2021 08:36:55 With:CORNELIO BARKLEY Address: [address] [place] [address] [place] [address]- Business (1) When:2-4 days Comments:Return to ED if symptoms worsen [facility] Evaluation + Plan note Future Appointments Appointment Date:09/24/2021 11:00:00 AM Scheduled Provider:MARTIN JOHNSON MD Location:[facility] Appointment Type:ENDO OV Future Scheduled TestsRenin, Plasma 10/02/21Luteinizing Hormone 10/02/21Prolactin Level 10/02/21Prostate Specific Antigen 07/07/21Thyroid Stimulating Hormone 10/02/21Thyroid Stimulating Hormone 08/13/21Free T4 10/02/21Free T4 08/13/21Complete Blood Count 08/13/21Cortisol Drawn in AM 10/02/21Follicle Stimulating Hormone Level 10/02/21Free T3 10/02/21Vitamin D Level 04/03/21Complete Metabolic Panel 10/02/21Complete Metabolic Panel 08/13/21Adrenocorticotropic Hormone (ACTH) 10/02/21US Abdomen Complete 06/23/21 [facility] Evaluation + Plan note Future Appointments Appointment Date:09/24/2021 11:00:00 AM Scheduled Provider:MARTIN JOHNSON MD Location:[facility] Appointment Type:ENDO OV Diagnostic Tests PendingRenin, Plasma 09/15/21Adrenocorticotropic Hormone (ACTH) 09/15/21 Future Scheduled TestsProstate Specific Antigen 07/07/21Thyroid Stimulating Hormone 08/13/21Fr T4 08/13/21Complete Blood Count 08/13/21Vitamin D Level 04/03/21Complete Metabolic Panel 08/13/21US Abdomen Complete 06/23/21 [facility] Evaluation + Plan note Future Appointments Appointment Date:03/25/2022 11:00:00 AM Scheduled Provider:MARTIN JOHNSON MD Location[facility] Appointment Type:ENDO OV Future Scheduled TestsProstate Specific Antigen 07/07/21Thyroid Stimulating Hormone 08/13/21Fr T4 08/13/21Complete Blood Count 08/13/21Vitamin D Level 04/03/21Complete Metabolic Panel 08/13/21US Abdomen Complete 06/23/21 [facility] Evaluation + Plan note Future Appointments Appointment Date:04/07/2023 11:00:00 AM Scheduled Provider:MARTIN JOHNSON MD Location:[facility] Appointment Type:ENDO OV Future Scheduled TestsAdrenocorticotropic Hormone (ACTH) 09/30/22Adrenocorticotropic Hormone (ACTH) 03/25/22Renin, Plasma 03/25/22Aldosterone 03/25/22Thyroid Stimulating Hormone 03/30/23Thyroid Stimulating Hormone 09/30/22Free T4 09/30/22Free T4 03/30/23A1C Hemoglobin 09/30/22Complete Blood Count 09/30/22Cortisol Drawn in AM 09/30/22Cortisol Drawn in AM 03/30/23Cortisol Drawn in AM 03/25/22Free T3 09/30/22Free T3 03/30/23Vitamin D Level 09/30/22Vitamin D Level 03/30/23Complete Metabolic Panel 09/30/22Complete Metabolic Panel 03/30/23 [facility] Hospital course Narrative No data available for this section [facility] Hospital Discharge instructions No data available for this section [facility] Progress note No data available for this section [facility] Summary Purpose Family History No Family History Records Found No data available for this section Advance Directives No Advanced Directives Records Found Additional Source Comments Care Team (unrecognized sect ion and content) Care Team Personnel Name: CORNELIO BARKLEY APRN, CNP Position: P4 Advanced Practice Nurse Med Service: Employed Provider Member Role: Primary Care Physician Address: Address: [address] [place] [address] Care Team Related Persons Name: GEORGINA MESSER Care Team Personnel Name: CORNELIO BARKLEY APRN CANAL BOAT CAPTAIN Position: P4 Advanced Practice Nurse Member Role: Primary Care Physician Address: Address: [address] [place] [address] Care Team Related Persons Name: GEORGINA MESSER (unrecognized sect ion and content) No Status Records Found INFORMATION SOURCE (unrecogn ized section and content) Patient Care team informatio n (unrecognized section and content) Care Team Personnel Name: CORNELIO BARKLEY APRN - CANAL BOAT CAPTAIN Position: P4 Advanced Meat And Seafood Clerk Member Role: Primary Care Physician Address: Address: [address] [place] [address] Name: NICHOL STEVENSON MD Position: ED Physician Member Role: Attending Physician Address: Address: [address] [place] [id number] Name: STEFANY Ferguson Position: AO RN Member Role: ED RN Name: SHELDON SAM DO Position: Resident Member Role: Resident Address: Address: [address] [facility] [place] [address]- Care Team Related Persons Name: GEORGINA MESSER FOR RECORDS PERTAINING TO PATIENTS WHO ARE OR HAVE BEEN ENROLLED IN A CHEMICAL DEPENDENCY/SUBSTANCEABUSE PROGRAM, SOME INFORMATION MAY BE OMITTED. This clinical summary was aggregated from multiple sources. Caution should be exercised in using it in the provision of clinical care. This summary normalizes information from multiple sources, and as a consequence, information in this document may materially change the coding, format and clinical context of patient data. In addition, data may be omitted in some cases. CLINICAL DECISIONS SHOULD BE BASED ON THE PRIMARY CLINICAL RECORDS. [employer] provides no warranty or guarantee of the accuracy or completeness of information in this document.
[2023-11-13 20:13] LABS: Absolute Lymphocyte Count 2.26 X10^3/uL (0.83-4.51); Absolute Neutrophil Count 2.9 X10^3/uL (2.0-7.7); Basophil# 0.05 X10^3/uL; Basophil% 0.9 % (0-1); Eosinophil# 0.07 X10^3/uL; Eosinophils% 1.2 % (0-5); Hematocrit 35.1 % (40-54); Hemoglobin 11.8 g/dL (13.0-16.5); Lymphocyte # 2.26 X10^3/ul (0.83-4.51); Lymphocyte % 40.1 % (19-41); Mean Corp Hgb Conc 33.6 g/dL (32-36); Mean Corpuscular Hgb 30.9 pg (27.0-32.0); Mean Corpuscular Volume 91.9 fL (80-94); Mean Platelet Vol. 9.7 fl (6.2-12.0); Monocyte# 0.33 X10^3/uL; Monocyte% 5.9 % (0-10); NRBC Flagged by Analyzer 0 % (0-5); Neutrophil # 2.92 X10^3/uL (2.7-7.7); Neutrophil % 51.7 % (47-70); Platelet Count 199 K/mm3 (150-450); RBC Distribution Width CV 12.6 % (11.6-14.6); RBC Distribution Width SD 42.3 fl (35.1-43.9); Red Blood Count 3.82 M/mm3 (4.6-6.2); White Blood Count 5.6 K/mm3 (4.4-11.0)
[2023-11-13 20:24] LABS: Anion Gap 2 (5-15); BUN 27 mg/dL (7-18); BUN/Creat Ratio 27.3 RATIO (10-20); Calcium,Total 9.5 mg/dL (8.5-10.1); Chloride 107 mmol/L (98-107); Creatinine, Serum 0.99 mg/dL (0.70-1.30); EST Glomerular Filtration Rate 78 mL/min (>60); Est Glom Filt Rate - Afr Amer 95 mL/min (>60); Estimated Creatinine Clearance 64.84 ml/min; Glucose 98 mg/dL (74-106); Potassium 4.1 mmol/L (3.5-5.1); Sodium Level 139 mmol/L (136-145)
[2023-11-13] MEDS: Meclizine HCl 25 MG Tablet PO (20:29)
[2023-11-13] MEDS: traMADol 50 MG Tablet PO (20:30)
[2023-11-13 20:48] LABS: Troponin-I HS 6 pg/mL (3.0-78.0)
[2023-11-13 21:18] VITALS: BP 142/92; PULSE 60; RESP 16; TEMP 36.7; O2SAT 95
== END 2023-11-13 21:38 | disposition home or self-care (01) ==
PROVIDERS: Physician Assistant; Emergency Provider Emergency Medicine; PCP Nurse Practitioner Family; Visit Provider Emergency Medicine
DX: H81.399 Other peripheral vertigo, unspecified ear (principal); M54.2 Cervicalgia; I10 Essential (primary) hypertension; E03.9 Hypothyroidism, unspecified; F41.1 Generalized anxiety disorder; Z79.890 Hormone replacement therapy; Z79.899 Other long term (current) drug therapy
CPT/HCPCS: 80048; 84484; 85025; 93005; 96372; 99284

== ENCOUNTER 2025-01-16 12:54 | Emergency (ER) | payer MEDICARE, SELFPAY ==
[2025-01-16 12:55] VITALS: BP 105/91; PULSE 57; RESP 16; TEMP 36.5; O2SAT 98; BMI 22.0
--- NOTE | 2025-01-16 13:24 | ED.VIS.FEGU ---
HPI HPI - Female History of Present Illness Chief Complaint: Flank Pain Narrative Narrative: Chief complaint and HPI: Right flank pain. 74-year-old male with past medical history of urolithiasis, somatic symptom disorder, anxiety, depression, panic disorder presents for evaluation of right flank pain. Onset of symptoms was yesterday evening. Associated symptom is urinary frequency and dysuria. Denies any fever, chills, shortness of breath, chest pain, nausea, vomiting, diarrhea, constipation. States it feels similar to his previous urolithiasis. Patient states that the pain is improved from last night. Took his 's tramadol. Review of systems: See HPI Medications: As listed on the chart Allergies: As listed on the chart PFSH: Per chart Vital signs: As listed on the chart. Reviewed. Physical exam: Gen: A&O x3, NAD Head: Normocephalic, atraumatic Eyes: No sclera icterus, conjunctiva clear ENT: Moist mucous membranes Neck: Trachea midline, No JVD CV: RRR, no murmurs, no peripheral edema Resp: Lungs CTA BL, no w/r/c GI: Abd soft, non-distended, mild tenderness palpation in the right flank, no r/r/g : No CVA tenderness Musc: Full ROM, no deformity Skin: Warm, dry Neuro: Alert, oriented, grossly intact, sensation intact Psych: Cooperative, appropriate mood and affect [facility] Medical History Emotional problems Somatic symptom disorder, severe Vertigo History of psychosis Major depressive disorder in partial remission Generalized anxiety disorder Anxiety disorder, unspecified Kidney stones H/O: pituitary tumor Hypertension Agitation Hypothyroid Pituitary abnormality Cascade disease Hyperacusis Addiction Home Medications ?Medication ?Instructions ?Recorded ?Last Taken ?Type hydrocortisone 5 mg tablet 5 mg PO DAILY 04/27/21 01/16/25 History meclizine 25 mg tablet 25 mg PO 4X/DAY PRN PRN Dizziness 11/13/23 01/16/25 Rx 5 days #20 tabs mirtazapine 15 mg tablet (Remeron) 7.5 mg (1/2 x 15 mg) PO QHS 90 10/29/24 01/15/25 Rx days #45 tabs quetiapine 100 mg tablet (Seroquel) 100 mg PO QHS #90 tabs 10/29/24 01/15/25 Rx hydroxyzine pamoate 25 mg capsule 25 mg PO BID PRN Anxiety 90 days 12/11/24 01/16/25 Rx (Vistaril) #180 caps hydrocodone-acetaminophen 5-325mg 1 tab PO Q4H PRN PRN Pain 3 days 01/16/25 Unknown Rx 5mg-325mg #10 TABLETS levothyroxine 50 mcg tablet 50 mcg PO DAILY 01/16/25 01/16/25 History ondansetron 4 mg disintegrating 4 mg PO Q8H PRN PRN Nausea #10 tabs 01/16/25 Unknown Rx tablet tamsulosin 0.4 mg capsule (Flomax) 0.4 mg PO DAILY 14 days #14 caps 01/16/25 Unknown Rx Allergy/AdvReac Type Severity Reaction Status Date / Time citalopram (From Celexa) Allergy Mild Other Verified 01/16/25 12:58 diphenhydramine (From Allergy Other Verified 01/16/25 12:58 Benadryl) Family History Other CVA (cerebral vascular accident) Depression Social History Smoking Status: Never smoker alcohol intake: never substance use type: does not use EXAM Physical Exam Const Vital Signs: 01/16/25 12:55 01/16/25 14:54 01/16/25 16:00 Temperature 97.7 F L Temperature Source Oral Pulse Rate 57 L 62 65 Respiratory Rate 16 16 16 Blood Pressure 105/91 H 151/79 H 147/82 H Blood Pressure Mean 95 103 103 Pulse Ox 98 95 99 Oxygen Delivery Method Room Air Room Air MDM MDM MDM Narrative Medical decision making narrative: 74-year-old male with past medical history of urolithiasis, somatic symptom disorder, anxiety, depression, panic disorder presents for evaluation of right flank pain. Associated symptom is urinary frequency and dysuria. Differential diagnosis includes but is not limited to urolithiasis, UTI, electrolyte abnormality, pyelonephritis. NS bolus ordered. Patient states his pain is minimal at this time is declining pain meds. Abdominal pain workup ordered including CT abdomen pelvis without contrast. CBC without leukocytosis. Patient has baseline anemia. Patient now endorsing abdominal pain, low-dose morphine and toradol ordered. CT abdomen pelvis shows a 2 to 3 mm calculus located within the dependent bladder lumen rather than the ureteral orifice/inferior most UVJ. Suspect recently passed. Mild hydroureter and fullness of the right renal pelvis without yaneli hydronephrosis. Slight asymmetric right perinephric stranding could be reactive or reflect ascending UTI. Correlate with UA. Lactic acid unremarkable. BMP unremarkable except for baseline elevated BUN. No HUSSAIN. UA negative for UTI, does not correlate with ascending UTI. On reevaluation, patient's pain is controlled. He was updated of all his results. Plan is for discharge home on narcotics as needed for pain, Zofran, Flomax. Follow-up with urology and PCP. Return precautions explained. He confirmed understanding the plan. Impression: 1. Right urolithiasis 2. History of kidney stones Lab Data Labs: Laboratory Results - last 24 hr 01/16/25 01/16/25 12:41 13:50 WBC 7.0 RBC 4.02 L Hgb 12.3 L Hct 35.9 L MCV 89.3 MCH 30.6 MCHC 34.3 RDW Std Deviation 41.3 RDW Coeff of Chris 12.5 Plt Count 164 MPV 9.3 Immature Gran % (Auto) 0.100 Neut % (Auto) 71.2 H Lymph % (Auto) 19.1 [place] % (Auto) 8.3 Eos % (Auto) 0.9 Baso % (Auto) 0.4 Absolute Neuts (auto) 5.0 Absolute Lymphs (auto) 1.33 Nucleated RBC % 0 Sodium 137 Potassium 4.4 Chloride 103 Carbon Dioxide 24.9 Anion Gap 9 BUN 26 H Creatinine 1.16 Estim Creat Clear Calc 59.58 Est GFR (MDRD) Non-Af 65 BUN/Creatinine Ratio 22.3 H Glucose 101 H Calcium 10.0 Urine Color Yellow Urine Clarity Clear Urine pH 6.0 Ur Specific [place] 1.015 Urine Protein TNP Urine Glucose (UA) Normal Urine Ketones Negative Urine Occult Blood 50 H Urine Nitrite Negative Urine Bilirubin Negative Urine Urobilinogen Normal Ur Leukocyte Esterase Negative Radiography Diagnostic Testing: Clinical Impression(s) from Imaging Studies Abdomen/Pelvis CT 01/16/25 14:10 IMPRESSION: 1. 2-3 mm calculus favored located within the dependent bladder lumen rather than the ureteral orifice/inferior most UVJ, possibly recently passed. Mild hydroureter and fullness of the RIGHT renal pelvis without yaneli caliectasis/hydronephrosis. 2. Slight asymmetric RIGHT perinephric stranding could be reactive or reflect ascending urinary tract infection. Correlate with urinalysis. 3. Additional description as above. Reading Location: [facility] Discharge Plan Triage Chief Complaint: Flank Pain ED Provider: Saad Sahu Dx/Rx/DC Orders Clinical Impression: Urolithiasis Instructions: ED Kidney Stone, Passed, ED Kidney Stone with Pain Prescriptions: New tamsulosin [Flomax] 0.4 mg capsule 0.4 mg PO DAILY 14 Days Qty: 14 0RF ondansetron 4 mg tablet,disintegrating 4 mg PO Q8H PRN PRN (Reason: Nausea) Qty: 10 0RF hydrocodone-acetaminophen 5-325 mg tablet 1 tab PO Q4H PRN PRN (Reason: Pain) 3 Days Qty: 10 0RF No Action mirtazapine [Remeron] 15 mg tablet 7.5 mg PO QHS 90 Days Qty: 45 1RF quetiapine [Seroquel] 100 mg tablet 100 mg PO QHS Qty: 90 1RF hydrocortisone 5 mg Tablet 5 mg PO DAILY meclizine 25 mg tablet 25 mg PO 4X/DAY PRN PRN (Reason: Dizziness) 5 Days Qty: 20 0RF levothyroxine 50 mcg tablet 50 mcg PO DAILY hydroxyzine pamoate [Vistaril] 25 mg capsule 25 mg PO BID PRN (Reason: Anxiety) 90 Days Qty: 180 1RF Primary Care Provider: Eyal Grove NP Referrals: Dennys Bates MD [Med Staff - Active Staff] - 3-5 Days Eyal Grove NP, [employer]ACHINE [employer]ER-C [Primary Care Provider] - 3-5 Days Activity Restrictions/Additional Instructions: Follow-up with urology and PCP. Return back to the ED if symptoms change or worsen. You received Toradol here in the emergency department, no ibuprofen for 8 hours. Narcotics can increase falls, confusion. Do not drive or operate heavy machinery while taking them. Print Language: Tunisian Disposition Disposition: Home, Self Care
[2025-01-16 13:45] LABS: Absolute Lymphocyte Count 1.33 X10^3/uL (0.83-4.51); Basophil# 0.03 X10^3/uL; Basophil% 0.4 % (0-1); Eosinophil# 0.06 X10^3/uL; Eosinophils% 0.9 % (0-5); Hematocrit 35.9 % (40-54); Hemoglobin 12.3 g/dL (13.0-16.5); Lymphocyte # 1.33 X10^3/ul (0.83-4.51); Lymphocyte % 19.1 % (19-41); Mean Corp Hgb Conc 34.3 g/dL (32-36); Mean Corpuscular Hgb 30.6 pg (27.0-32.0); Mean Corpuscular Volume 89.3 fL (80-94); Mean Platelet Vol. 9.3 fl (6.2-12.0); Monocyte# 0.58 X10^3/uL; Monocyte% 8.3 % (0-10); NRBC Flagged by Analyzer 0 % (0-5); Neutrophil # 4.96 X10^3/uL (2.7-7.7); Neutrophil % 71.2 % (47-70); Platelet Count 164 K/mm3 (150-450); RBC Distribution Width CV 12.5 % (11.6-14.6); RBC Distribution Width SD 41.3 fl (35.1-43.9); Red Blood Count 4.02 M/mm3 (4.6-6.2)
[2025-01-16] MEDS: Morphine 4 MG/ML Syringe 2 MG IV (13:51)
[2025-01-16] MEDS: 0.9% Normal Saline (1000mL) 1,000 ML 999 ML IV (13:52)
[2025-01-16 14:00] LABS: Bacteria 0 SEEN /hpf (None Seen); Mucous, Urine 0 SEEN /hpf (<or=2+)
--- NOTE | 2025-01-16 14:10 | CT_ITS ---
PROCEDURE: ABDOMEN/PELVIS WITHOUT CONT (CTABDPEL), 01/16/2025 REASON FOR EXAM: PAIN TECHNIQUE: CT abdomen and pelvis was performed without IV contrast. Multiplanar reformats were generated. RADIATION DOSE SUMMARY: CTDlvol: 6.42 mGy DLP: 309.63 mGycm One or more dose reduction techniques were used (e.g., Automated exposure control, adjustment of the mA and/or kV according to patient size, use of iterative reconstruction technique). COMPARISON: None. FINDINGS: Note that evaluation of the abdominopelvic viscera, vasculature, and remaining soft tissues is limited in the absence of IV contrast. Lung bases: Unremarkable. Liver: Unremarkable. Spleen: Unremarkable. Gallbladder: Cholelithiasis with possible sludge. Pancreas: Unremarkable. Adrenals: Unremarkable. Kidneys: Slightly asymmetric RIGHT perinephric stranding. Fullness of the RIGHT renal pelvis and ureter without yaneli hydronephrosis. 2-3 mm calculus favored located within the dependent bladder lumen rather than the ureteral orifice/inferior most UVJ. Bowel: Mild diverticulosis.. Normal caliber appendix. Lymph nodes: Unremarkable. Vasculature: Unremarkable. Peritoneum: Unremarkable. Bladder: As above. Mass-effect by the enlarged prostate. Suspect a broad-based diverticulum posteriorly, suggesting chronic bladder outlet obstruction. Reproductive Organs: Mild prostatomegaly. Body Wall: Tiny fat containing umbilical hernia.. Bones: Demineralization. Lower thoracic predominant spondylosis.. CT/Abdomen/Pelvis without Cont IMPRESSION: 1. 2-3 mm calculus favored located within the dependent bladder lumen rather th an the ureteral orifice/inferior most UVJ, possibly recently passed. Mild hydroureter and fullness of the RIGHT renal pel vis without yaneli caliectasis/hydronephrosis. 2. Slight asymmetric RIGHT perinephric stranding could be reactive or reflect a scending urinary tract infection. Correlate with urinalysis. 3. Additional description as above. Reading Location: [id number]
[2025-01-16 14:54] VITALS: BP 151/79; PULSE 62; RESP 16; O2SAT 95
[2025-01-16 15:04] LABS: BUN 26 mg/dL (4-19); BUN/Creat Ratio 22.3 RATIO (10-20); Chloride 103 mmol/L (98-108); Creatinine, Serum 1.16 mg/dL (0.70-1.20); EST Glomerular Filtration Rate 65 (>60); Estimated Creatinine Clearance 59.58 ml/min (50-250); Potassium 4.4 mmol/L (3.3-5.1); Sodium Level 137 mmol/L (133-145)
[2025-01-16 15:05] LABS: Color, Urine Yellow (Yellow); Glucose, Dipstick Normal (Normal); Ketone-Dipstick Negative (Negative); Leukocyte Esterase-Dipstick Negative /ul (Negative); Nitrite-Dipstick Negative (Negative); Occult Blood-Urine 50 /ul (Negative); Specific Gravity, Urine 1.015 (1.002-1.030); Urine Bilirubin Dipstick Negative (Negative); Urine Clarity Clear (Clear); Urine Urobilinogen Normal (Normal)
[2025-01-16] MEDS: Ketorolac 15 MG/ML Vial IV (15:13)
[2025-01-16 15:17] LABS: Anion Gap 9 (5-15); Carbon Dioxide 24.9 mmol/L (21.0-32.0)
[2025-01-16 15:37] LABS: Glucose 101 mg/dL (70-99)
[2025-01-16 16:00] VITALS: BP 147/82; PULSE 65; RESP 16; O2SAT 99
[2025-01-16 16:08] VITALS: BP 147/82; PULSE 65; RESP 16; TEMP 36.6; O2SAT 99
[2025-01-16 16:14] LABS: Protein, Urine (Random) 8.6 mg/dL (0.0-12.0)
[2025-01-16 17:20] LABS: Red Blood Cells-Urine 0-5 SEEN /hpf (0-5); Squamous Epithelial Cells - UA 0-5 SEEN /hpf (0-5); White Blood Cells 0-5 SEEN /hpf (0-5)
== END 2025-01-16 16:13 | disposition home or self-care (01) ==
PROVIDERS: Emergency Provider Surgery; PCP Nurse Practitioner Family; Referring Provider Surgery; Visit Provider Surgery
DX: N20.9 Urinary calculus, unspecified (principal); N13.4 Hydroureter; I10 Essential (primary) hypertension; R30.0 Dysuria; R35.0 Frequency of micturition; F32.A Depression, unspecified; F41.9 Anxiety disorder, unspecified; E03.9 Hypothyroidism, unspecified; Z79.890 Hormone replacement therapy; Z79.899 Other long term (current) drug therapy
CPT/HCPCS: 74176; 80048; 81001; 84156; 85025; 96361; 96374; 96375; 99282